=== PATIENT | male | born 1975 | race African-American/Black ===

== ENCOUNTER 2016-11-28 04:11 | Inpatient (IN) | payer OTHER ==
[~2016-11-28] VITALS: Ht 182.9 cm; Wt 134.0 kg
[~2016-11-28 04:11] MED LIST: ALBU2.5V3 NEB; BACL10TA PO; DIPH25CA6 PO; LEVE500S8 PO; METO-335 PO; MIRT15TA5 PO; NORT10CA2 PO; NOVO7030 SC; OMEP20CA16 PO; PHEN100C PO; RAMI10CA48 PO
[2017-06-06 21:05] VITALS: BP 121/90; PULSE 65; RESP 18
[2017-06-06 21:10] VITALS: Ht 182.9 cm; Wt 134.0 kg
[2017-06-06] MEDS ORDERED: morphine 2 MG INJ IV PRN (22:30)
[2017-06-07] MEDS: DIPHENHYDRAMINE 25 MG CAP PO PRN ×3 (01:05→20:50)
[2017-06-07] MEDS: HYDROCODONE/APAP (10/325) TAB PO PRN ×3 (01:05→20:50)
[2017-06-07] MEDS: PHENYTOIN 100 MG CAP PO SCH ×2 (01:06→20:40)
[2017-06-07 02:12] VITALS: BP 142/75; RESP 20
[2017-06-07] MEDS: PANTOPRAZOLE (EC) 40 MG TAB PO SCH (05:08)
[2017-06-07 05:15] LABS: BASOPHILS % 0.6 % (0.0-2.0); EOSINOPHILS # 0.3 10^3/ul (0.0-0.5); EOSINOPHILS % 4.5 % (0.0-7.0); HEMOGLOBIN 11.9 g/dl (14.0-18.0); LYMPHOCYTES # 2.5 10^3/ul (0.8-2.9); LYMPHOCYTES % 35.3 % (15.0-51.0); MEAN CORPUSCULAR HEMOGLOBIN 24.4 pg (29.0-33.0); MEAN CORPUSCULAR HGB CONC 31.3 g/dl (32.0-37.0); MEAN PLATELET VOLUME 9.3 fl (7.4-10.4); MONOCYTE # 0.7 10^3/ul (0.3-0.9); MONOCYTES % 10.2 % (0.0-11.0); NEUTROPHIL # 3.5 10^3/ul (1.6-7.5); NEUTROPHILS % 49.1 % (39.0-77.0); PLATELET COUNT 278 10^3/UL (140-415); RED BLOOD COUNT 4.87 10^6/ul (4.70-6.10); RED CELL DISTRIBUTION WIDTH 13.7 % (11.5-14.5); WHITE BLOOD COUNT 7.2 10^3/ul (4.8-10.8)
[2017-06-07 05:51] LABS: ALBUMIN/GLOBULIN RATIO 1.02; BILIRUBIN,INDIRECT 0.2 mg/dl (0-1.1); BILIRUBIN,TOTAL 0.2 mg/dl (0.2-1.3); CALCIUM 8.8 mg/dl (8.4-10.2); CREATININE 0.79 mg/dl (0.61-1.24); POTASSIUM 4.3 mmol/L (3.5-5.1); TOTAL PROTEIN 7.9 g/dl (6.1-8.1)
[2017-06-07 08:08] VITALS: BP 120/77; RESP 18
[2017-06-07] MEDS: BENAZEPRIL 10 MG TAB PO SCH (09:52)
[2017-06-07] MEDS: FLUTICASONE 0.05% 16 GM NAS SPRAY NASAL SCH (09:53)
[2017-06-07] MEDS: DORZOLAMIDE 2% 10 ML OPH BOTH EYES SCH ×3 (09:53→20:39)
[2017-06-07] MEDS: RISPERIDONE 2 MG TAB PO SCH (09:54)
[2017-06-07] MEDS: ESCITALOPRAM 10 MG TAB PO SCH (09:54)
[2017-06-07] MEDS: FERROUS SULFATE (EC) 325 MG TAB PO SCH ×3 (09:54→20:44)
[2017-06-07] MEDS: DIVALPROEX (ER) 500 MG TAB PO SCH (09:54)
[2017-06-07] MEDS: GABAPENTIN 300 MG CAP PO SCH ×3 (09:54→20:42)
[2017-06-07] MEDS: LEVETIRACETAM 500 MG TAB PO SCH (09:54)
[2017-06-07] MEDS: TIMOLOL 0.25% 5 ML OPH BOTH EYES SCH ×2 (09:59→20:44)
[2017-06-07] MEDS: DEXTROSE 5%-0.45% NACL 1,000 ML IV SCH (10:54)
--- NOTE | 2017-06-07 12:52 | QN ---
Documentation Comment [id number] MARY ANNE REYEZ MD Jun 07, 2017 12:52
[2017-06-07 14:16] VITALS: BP 130/80; RESP 18
--- NOTE | 2017-06-07 15:14 | HP ---
DATE OF ADMISSION: 06/06/2017 HISTORY OF PRESENT ILLNESS: The patient is a young male who was admitted to [facility]. Patient was complaining of abdominal pain. The patient has a ventral hernia and the patie nt was complaining of pain and was transferred here for further management. The patient is a little sleepy. Denies any nausea or vomiting at this point. PAST MEDICAL HISTORY: Positive for hypertension, CVA. ALLERGIES: 1. HALDOL. 2. FISH OIL. 3. FISH. 4. LATEX. SOCIAL HISTORY: Positive for smoking. Denies drugs. MEDICATION HISTORY: Listed as: 1. Lipitor 20 mg daily. 2. Benadryl. 3. Depakote. 4. Trusopt. 5. Celexa 10 mg daily. 6. Iron sulfate. 7. Gabapentin 600 mg a day. 8. Hydrocodone. 9. Keppra 500 twice daily. 10. Ramipril 5 mg daily. 11. Respirdal once daily. 12. Xarelto 20 mg daily. 13. Eyedrops. 14. Lasix. REVIEW OF SYSTEMS: HEENT: Unremarkable. RESPIRATORY: Unremarkable. CARDIOVASCULAR: Unremarkable. ABDOMEN: Abdominal pain. No hematemesis, melena. EXTREMITIES: Unremarkable. GENITOURINARY: Unremarkable. MUSCULOSKELETAL: Unremarkable. GENITOURINARY: Unremarkable. MUSCULOSKELETAL: The patient has left lower extremity weakness, as per patient left-sided weakness. EXTREMITIES: No cyanosis, no swelling. PHYSICAL EXAMINATION: GENERAL: The patient is awake, alert. VITAL SIGNS: Pulse 60, blood pressure 142/75. HEAD: Atraumatic, normocephalic. Pupils equal, reactive to light. No pallor or conjunctival icter us. NECK: Supple, no JVD. LUNGS: Clear. CARDIOVASCULAR: S1, S2 normal. ABDOMEN: Soft. Bowel sounds positive. Abdominal hernia noted. Tender on palpation. EXTREMITIES: No cyanosis, clubbing, edema. CENTRAL NERVOUS SYSTEM: The patient is awake, alert with left-sided weakness noted. IMPRESSION: 1. Abdominal pain. 2. Abdominal hernia. 3. Patient has history of hypertension, history of seizure disorder, history of hepatitis A infecti on, history of bipolar disorder, history of cerebrovascular accident. Patient has incomplete databa se. Patient has anemia. PLAN: Give this patient clear liquid diet. The patient will have surgical consultation. The patie nt's CT of the abdomen and pelvis done shows a ventral hernia without incarceration from the [facility]. Patient will be started on a PPI and pain medication. Orders were done. Dictated By: MARY ANNE NGUYEN/RAMA Conf#: [id number] DID#: [id number]
--- NOTE | 2017-06-07 15:43 | CONS ---
Date/Time of Note Date/Time of Note DATE: 06/07/17 TIME: 15:27 Assessment/Plan Assessment/Plan Chief Complaint/Hosp Course 1. Symptomatic ventral hernia without incarceration/strangulation -no emergent surgical intervention necessary at this time. may return to primary surgeon for hernia repair -weight loss recommended -may use abdominal binder (after reducing hernia) for support 2. Obesity: bmi: 40 -weight management -diet and exercise 3. history of cva: -medical management -supportive 4. Anemia: No acute bleed noted -work up per medical team -monitor and transfuse prn Thank you. Patient seen and examined in collaboration with Dr. Neto Gómez. Problems: Consultation Date/Type/Reason Admit Date/Time Jun 06, 2017 at 21:27 Date of Consultation: Jun 07, 2017 Type of Consultation: Surgical Reason for Consultation Ventral Hernia Referring Provider: MARY ANNE REYEZ MD Hx of Present Illness Luca Cooper is a 41 yo man who was transferred to [facility] with complaints of abdominal pain. He has significant history of previous PEG placement and removal , bowel obstruction with open exploration of the abdomen in 2002 done at [facility]. His abdominal pain began 5 days ago without particular precipitating factor. The pain is not associated with nausea, vomiting or discoloration of the abdomen. CT abdomen showed and ventral hernia without incarceration. No identifiable relieving factors. General surgery was asked to consult. Constitutional: No febrile Eyes: No visual change ENT: No congestion Respiratory: No cough, No shortness of breath Cardiovascular: No chest pain, No lightheadedness Gastrointestinal: pain (as above), No constipation, No diarrhea, No nausea Genitourinary: No dysuria Musculoskeletal: No bone/joint pain Skin: No bruising, No erythema Neurologic: No confusion, No headache Psychological: nl mood/affect Past Medical History Hypertension CVA dysphagia respiratory failure Past Surgical History tracheostomy peg placement abdomen exploration Family History Significant Family History: no pertinent family hx Social History Alcohol Use: none Smoking Status: Current every day smoker Drug Use: none Exam/Review of Systems Vital Signs Vitals Vital Signs Date Time Temp Pulse Resp B/P Pulse Ox O2 Delivery O2 Flow Rate FiO2 06/07/17 14:16 97.8 68 18 130/80 90 06/06/17 21:05 Room Air Intake and Output 06/06/17 06/06/17 06/07/17 15:00 23:00 07:00 Intake Total 1000 ml Output Total 950 ml Balance 50 ml Exam Constitutional: alert, other (somnolent) Psych: nl mood/affect Head: atraumatic, normocephalic Eyes: nl lids, nl sclera ENMT: mucosa pink and moist, nl nasal mucosa & septum Neck: non-tender, other (tracheostomy), supple Respiratory: clear to auscultation, normal air movement Cardiovascular: nl pulses, regular rate and rhythm Gastrointestinal: distended (min), other (ventral hernia), soft, surgical scars Musculoskeletal: nl extremities to inspection, other (left sided weakness) Extremities: normal pulses Neurological: nl mental status, nl strength, No nl speech (s/p cva min slurred) Skin: nl turgor, No rash or lesions Results Result Diagram: 06/07/1742106/07/17421 Results 24 hrs Laboratory Tests Test 06/07/17 04:22 White Blood Count 7.2 Red Blood Count 4.87 Hemoglobin 11.9 L Hematocrit 38.0 L Mean Corpuscular Volume 78.0 L Mean Corpuscular Hemoglobin 24.4 L Mean Corpuscular Hemoglobin Concent 31.3 L Red Cell Distribution Width 13.7 Platelet Count 278 # Mean Platelet Volume 9.3 Neutrophils % 49.1 Lymphocytes % 35.3 Monocytes % 10.2 Eosinophils % 4.5 Basophils % 0.6 Nucleated Red Blood Cells % 0.0 Neutrophils # 3.5 Lymphocytes # 2.5 Monocytes # 0.7 Eosinophils # 0.3 Basophils # 0.0 Nucleated Red Blood Cells # 0.0 Sodium Level 140 Potassium Level 4.3 Chloride Level 107 Carbon Dioxide Level 26 Anion Gap 11 Blood Urea Nitrogen 13 Creatinine 0.79 Glucose Level 91 Calcium Level 8.8 Total Bilirubin 0.2 Direct Bilirubin 0.00 Indirect Bilirubin 0.2 Aspartate Amino Transf (AST/SGOT) 43 Alanine Aminotransferase (ALT/SGPT) 46 Alkaline Phosphatase 150 H Total Protein 7.9 Albumin 4.0 Globulin 3.90 H Albumin/Globulin Ratio 1.02 Medications Medications Current Medications Pantoprazole (Protonix Tab) 40 mg DAILY@06 PO Last administered on 06/07/17t 05:08; Admin Dose 40 MG; Start 06/07/17 at 06:00 Atorvastatin Calcium (Lipitor) 20 mg HS PO ; Start 06/07/17 at 21:00 Diphenhydramine HCl (Benadryl) 25 mg Q8 PRN PO ITCHING Last administered on 10:09; Admin Dose 25 MG; Start 06/06/17 at 22:30 Divalproex Sodium (Depakote Er) 500 mg DAILY PO Last administered on 09:54; Admin Dose 500 MG; Start 06/07/17 at 09:00 Escitalopram Oxalate (Lexapro) 10 mg DAILY PO Last administered on 06/07/17 09:54; Admin Dose 10 MG; Start 06/07/17 at 09:00 Ferrous Sulfate (Ferrous Sulfate (Ec)) 325 mg TID PO Last administered on 06/07 09:54; Admin Dose 325 MG; Start 06/07/17 at 09:00 Fluticasone Propionate (Flonase 0.05% Nasal) 1 spray DAILY NASAL Last administered on 06/07/17 09:53; Admin Dose 1 SPRAY; Start 06/07/17 at 09:00 Gabapentin (Neurontin) 600 mg TID PO Last administered on 06/07/17 09:54; Admin Dose 600 MG; Start 06/07/17 at 09:00 Latanoprost (Xalatan) 1 drop HS BOTH EYES ; Start 06/07/17 at 18:00 Levetiracetam (Keppra) 500 mg DAILY PO Last administered on 06/07/17 09:54; Admin Dose 500 MG; Start 06/07/17 at 09:00 Acetaminophen/ Hydrocodone Bitart ([place] (10/325)) 1 tab BID PRN PO pain Last administered on 06/07/17 10:10; Admin Dose 1 TAB; Start 06/06/17 at 22:30 Phenytoin (Dilantin) 300 mg HS PO Last administered on 06/07/17 01:06; Admin Dose 300 MG; Start 06/06/17 at 23:00 Risperidone (Risperdal) 2 mg DAILY PO Last administered on 06/07/17 09:54; Admin Dose 2 MG; Start 06/07/17 at 09:00 Timolol Maleate (Timoptic 0.25%) 1 drop BID BOTH EYES Last administered on 09:59; Admin Dose 1 DROP; Start 06/07/17 at 09:00 Morphine Sulfate (morphine) 1 mg Q4H PRN IV PAIN LEVEL 4-7; Start 06/06/17 at 22:30 Morphine Sulfate (morphine) 2 mg Q4H PRN IV PAIN LEVEL 7-10; Start 06/06/17 at 22:30 Dorzolamide HCl (Trusopt) 1 drop TID BOTH EYES Last administered on 06/07/17 14:18; Admin Dose 1 DROP; Start 06/07/17 at 09:00 Benazepril HCl 20 mg 20 mg DAILY PO Last administered on 06/07/17 09:52; Admin Dose 20 MG; Start 06/07/17 at 09:00 Dextrose/Sodium Chloride (D5-1/2ns) 1,000 ml @ 50 mls/hr Q20H IV Last administered on 06/07/17 10:54; Admin Dose 50 MLS/HR; Start 06/07/17 at 10:30 RAFAL BROWN NP Jun 07, 2017 15:37
[2017-06-07] MEDS: RIVAROXABAN 20 MG TABLET PO SCH (17:55)
[2017-06-07] MEDS ORDERED: LATANOPROST 0.005% 2.5 ML OPH BOTH EYES SCH (18:00)
[2017-06-07 20:07] VITALS: BP 132/86; RESP 18
[2017-06-07] MEDS: LATANOPROST 0.005% 2.5 ML OPH BOTH EYES SCH (20:42)
[2017-06-07] MEDS: ATORVASTATIN 10 MG TAB PO SCH (20:44)
[2017-06-08 03:16] VITALS: BP 130/80; RESP 20
[2017-06-08] MEDS: PANTOPRAZOLE (EC) 40 MG TAB PO SCH (04:49)
[2017-06-08] MEDS: HYDROCODONE/APAP (10/325) TAB PO PRN ×3 (04:49→15:15)
[2017-06-08 05:15] LABS: BASOPHILS % 0.6 % (0.0-2.0); EOSINOPHILS # 0.4 10^3/ul (0.0-0.5); EOSINOPHILS % 5.4 % (0.0-7.0); HEMATOCRIT 35.8 % (42.0-52.0); HEMOGLOBIN 11.2 g/dl (14.0-18.0); LYMPHOCYTES # 2.6 10^3/ul (0.8-2.9); LYMPHOCYTES % 37.2 % (15.0-51.0); MEAN CORPUSCULAR HEMOGLOBIN 24.3 pg (29.0-33.0); MEAN CORPUSCULAR HGB CONC 31.3 g/dl (32.0-37.0); MEAN CORPUSCULAR VOLUME 77.7 fl (82.0-101.0); MEAN PLATELET VOLUME 9.8 fl (7.4-10.4); MONOCYTE # 0.7 10^3/ul (0.3-0.9); MONOCYTES % 9.9 % (0.0-11.0); NEUTROPHIL # 3.2 10^3/ul (1.6-7.5); NEUTROPHILS % 46.6 % (39.0-77.0); PLATELET COUNT 255 10^3/UL (140-415); RED BLOOD COUNT 4.61 10^6/ul (4.70-6.10); RED CELL DISTRIBUTION WIDTH 13.7 % (11.5-14.5); WHITE BLOOD COUNT 6.9 10^3/ul (4.8-10.8)
[2017-06-08 05:43] LABS: ALBUMIN 3.6 g/dl (3.3-4.9); ALBUMIN/GLOBULIN RATIO 0.83; BILIRUBIN,INDIRECT 0.2 mg/dl (0-1.1); BILIRUBIN,TOTAL 0.2 mg/dl (0.2-1.3); CALCIUM 8.7 mg/dl (8.4-10.2); CREATININE 0.79 mg/dl (0.61-1.24); POTASSIUM 4.1 mmol/L (3.5-5.1); TOTAL PROTEIN 7.9 g/dl (6.1-8.1)
[2017-06-08] MEDS: DEXTROSE 5%-0.45% NACL 1,000 ML IV SCH (06:10)
[2017-06-08 07:00] VITALS: BP 123/75; RESP 18
[2017-06-08] MEDS: TIMOLOL 0.25% 5 ML OPH BOTH EYES SCH ×2 (08:23→20:32)
[2017-06-08] MEDS: FLUTICASONE 0.05% 16 GM NAS SPRAY NASAL SCH (08:24)
[2017-06-08] MEDS: FERROUS SULFATE (EC) 325 MG TAB PO SCH ×3 (08:24→20:33)
[2017-06-08] MEDS: DORZOLAMIDE 2% 10 ML OPH BOTH EYES SCH ×3 (08:24→20:32)
[2017-06-08] MEDS: GABAPENTIN 300 MG CAP PO SCH ×3 (08:24→20:33)
[2017-06-08] MEDS: DIVALPROEX (ER) 500 MG TAB PO SCH (08:25)
[2017-06-08] MEDS: BENAZEPRIL 10 MG TAB PO SCH (08:25)
[2017-06-08] MEDS: LEVETIRACETAM 500 MG TAB PO SCH (08:25)
[2017-06-08] MEDS: RISPERIDONE 2 MG TAB PO SCH ×2 (08:26→20:33)
[2017-06-08] MEDS: ESCITALOPRAM 10 MG TAB PO SCH (08:26)
[2017-06-08] MEDS: morphine 2 MG INJ IV PRN ×2 (12:32→16:52)
[2017-06-08 14:00] VITALS: BP 137/78; RESP 18
[2017-06-08 15:32] VITALS: BP 121/81; PULSE 71; RESP 16
[2017-06-08] MEDS: RIVAROXABAN 20 MG TABLET PO SCH ×2 (17:14→20:33)
--- NOTE | 2017-06-08 18:08 | PN ---
Date/Time of Note Date/Time of Note DATE: 06/08/17 TIME: 18:07 Assessment/Plan VTE Prophylaxis VTE Prophylaxis Intervention: other Lines/Catheters IV Catheter Type (from Nrs): Saline Lock Assessment/Plan Chief Complaint/Hosp Course IMPRESSION: 1. Abdominal pain. 2. Abdominal hernia. 3. Patient has history of hypertension, history of seizure disorder, history of hepatitis A infection, history of bipolar disorder, history of cerebrovascular accident. Patient has incomplete database. Patient has anemia. PLAN ABD BINDER Problems: Subjective 24 Hr Interval Summary Cardiovascular: no complaints Gastrointestinal: No constipation, No diarrhea Exam/Review of Systems Vital Signs Vitals Vital Signs Date Time Temp Pulse Resp B/P Pulse Ox O2 Delivery O2 Flow Rate FiO2 06/08/17 15:32 97.8 71 16 121/81 96 Room Air Intake and Output 06/07/17 06/07/17 06/08/17 15:00 23:00 07:00 Intake Total 1100 ml Output Total 1300 ml Balance -200 ml Exam Respiratory: clear to auscultation Cardiovascular: regular rate and rhythm Gastrointestinal: soft Extremities: normal pulses Results Result Diagram: 06/08/17 0433 06/08/17 0433 Results 24 hrs Laboratory Tests Test 06/08/17 04:33 White Blood Count 6.9 Red Blood Count 4.61 L Hemoglobin 11.2 L Hematocrit 35.8 L Mean Corpuscular Volume 77.7 L Mean Corpuscular Hemoglobin 24.3 L Mean Corpuscular Hemoglobin Concent 31.3 L Red Cell Distribution Width 13.7 Platelet Count 255 Mean Platelet Volume 9.8 Neutrophils % 46.6 Lymphocytes % 37.2 Monocytes % 9.9 Eosinophils % 5.4 Basophils % 0.6 Nucleated Red Blood Cells % 0.0 Neutrophils # 3.2 Lymphocytes # 2.6 Monocytes # 0.7 Eosinophils # 0.4 Basophils # 0.0 Nucleated Red Blood Cells # 0.0 Sodium Level 139 Potassium Level 4.1 Chloride Level 107 Carbon Dioxide Level 26 Anion Gap 10 Blood Urea Nitrogen 13 Creatinine 0.79 Glucose Level 84 Calcium Level 8.7 Total Bilirubin 0.2 Direct Bilirubin 0.00 Indirect Bilirubin 0.2 Aspartate Amino Transf (AST/SGOT) 40 Alanine Aminotransferase (ALT/SGPT) 37 Alkaline Phosphatase 140 H Total Protein 7.9 Albumin 3.6 Globulin 4.30 H Albumin/Globulin Ratio 0.83 Medications Medications Current Medications Pantoprazole (Protonix Tab) 40 mg DAILY@06 PO Last administered on 06/08/17 04:49; Admin Dose 40 MG; Start 06/07/17 at 06:00 Atorvastatin Calcium (Lipitor) 20 mg HS PO Last administered on 06/07/17 20: 44; Admin Dose 20 MG; Start 06/07/17 at 21:00 Diphenhydramine HCl (Benadryl) 25 mg Q8 PRN PO ITCHING Last administered on 20:50; Admin Dose 25 MG; Start 06/06/17 at 22:30 Divalproex Sodium (Depakote Er) 500 mg DAILY PO Last administered on 09:54; Admin Dose 500 MG; Start 06/07/17 at 09:00 Escitalopram Oxalate (Lexapro) 10 mg DAILY PO Last administered on 06/07/17 09:54; Admin Dose 10 MG; Start 06/07/17 at 09:00 Ferrous Sulfate (Ferrous Sulfate (Ec)) 325 mg TID PO Last administered on 06/08 12:31; Admin Dose 325 MG; Start 06/07/17 at 09:00 Fluticasone Propionate (Flonase 0.05% Nasal) 1 spray DAILY NASAL Last administered on 06/08/17 08:24; Admin Dose 1 SPRAY; Start 06/07/17 at 09:00 Gabapentin (Neurontin) 600 mg TID PO Last administered on 06/08/17 12:31; Admin Dose 600 MG; Start 06/07/17 at 09:00 Levetiracetam (Keppra) 500 mg DAILY PO Last administered on 06/08/17 08:25; Admin Dose 500 MG; Start 06/07/17 at 09:00 Phenytoin (Dilantin) 300 mg HS PO Last administered on 06/07/17 20:40; Admin Dose 300 MG; Start 06/06/17 at 23:00 Risperidone (Risperdal) 2 mg DAILY PO Last administered on 06/07/17 09:54; Admin Dose 2 MG; Start 06/07/17 at 09:00 Timolol Maleate (Timoptic 0.25%) 1 drop BID BOTH EYES Last administered on 08:23; Admin Dose 1 DROP; Start 06/07/17 at 09:00 Morphine Sulfate (morphine) 1 mg Q4H PRN IV PAIN LEVEL 4-7; Start 06/06/17 at 22:30 Morphine Sulfate (morphine) 2 mg Q4H PRN IV PAIN LEVEL 7-10 Last administered on 06/08/17 16:52; Admin Dose 2 MG; Start 06/06/17 at 22:30 Dorzolamide HCl (Trusopt) 1 drop TID BOTH EYES Last administered on 06/08/17 12:31; Admin Dose 1 DROP; Start 06/07/17 at 09:00 Benazepril HCl 20 mg 20 mg DAILY PO Last administered on 06/08/17 08:25; Admin Dose 20 MG; Start 06/07/17 at 09:00 Dextrose/Sodium Chloride (D5-1/2ns) 1,000 ml @ 50 mls/hr Q20H IV Last administered on 06/07/17 10:54; Admin Dose 50 MLS/HR; Start 06/07/17 at 10:30 Latanoprost (Xalatan) 1 drop HS BOTH EYES Last administered on 06/07/17 20:42 ; Admin Dose 1 DROP; Start 06/07/17 at 21:00 Acetaminophen/ Hydrocodone Bitart ([place] (10/325)) 1 tab TID PRN PO PAIN Last administered on 06/08/17 15:15; Admin Dose 1 TAB; Start 06/08/17 at 13:30 MARY ANNE REYEZ MD Jun 08, 2017 18:08
[2017-06-08 19:25] VITALS: BP 124/87; PULSE 67; RESP 16
--- NOTE | 2017-06-08 20:08 | PN ---
Date/Time of Note Date/Time of Note DATE: 06/08/17 TIME: 20:04 Assessment/Plan Lines/Catheters IV [facility]from [facility]): Saline Lock Assessment/Plan Chief Complaint/Hosp Course 1. Symptomatic ventral hernia without incarceration/strangulation -no emergent surgical intervention necessary at this time. may return to primary surgeon for hernia repair -weight loss recommended -may use abdominal binder (after reducing hernia) for support 2. Obesity: bmi: 40 -weight management -diet and exercise 3. history of cva: -medical management -supportive 4. Anemia: No acute bleed noted -work up per medical team -monitor and transfuse prn 5. Depression with ?suicidal ideation -1:1 sitter -psych eval Thank you. Patient seen and examined in collaboration with Dr. Neto Gómez. Problems: Subjective 24 Hr Interval Summary Patient c/o abdominal pain when hernia protruding out but improved when hernia reduced (ie in bed). Instructed patient on putting on abd binder when hernia is reduced. C/o depression- with 1:1 sitter with reported thoughts of hurting himself. No c/o cp, palpitations, sob, congested cough, n/v/d/dysuria. Exam/Review of Systems Vital Signs Vitals Vital Signs Date Time Temp Pulse Resp B/P Pulse Ox O2 Delivery O2 Flow Rate FiO2 06/08/17 19:25 98.2 67 16 124/87 99 Room Air Intake and Output 06/07/17 06/07/17 06/08/17 15:00 23:00 07:00 Intake Total 1100 ml Output Total 1300 ml Balance -200 ml Exam Free Text/Dictation Constitutional: alert, other (somnolent) Psych: depressed, ?suicidal Head: atraumatic, normocephalic Eyes: nl lids, nl sclera ENMT: mucosa pink and moist, nl nasal mucosa & septum Neck: non-tender, other (tracheostomy), supple Respiratory: clear to auscultation, normal air movement Cardiovascular: nl pulses, regular rate and rhythm Gastrointestinal: distended (min), other (ventral hernia), soft, surgical scars Musculoskeletal: nl extremities to inspection, other (left sided weakness) Extremities: normal pulses Neurological: nl mental status, nl strength, No nl speech (s/p cva min slurred) Skin: nl turgor, No rash or lesions Results Result Diagram: 06/08/17 0433 06/08/17 0433 RAFAL BROWN NP Jun 08, 2017 20:08
[2017-06-08] MEDS: LATANOPROST 0.005% 2.5 ML OPH BOTH EYES SCH (20:32)
[2017-06-08] MEDS: ATORVASTATIN 10 MG TAB PO SCH (20:33)
[2017-06-08] MEDS: PHENYTOIN 100 MG CAP PO SCH (20:35)
[2017-06-08] MEDS ORDERED: GUAIFENESIN 20 MG/ML 5ML CUP ONE (21:54)
[2017-06-08] MEDS: GUAIFENESIN 20 MG/ML 5ML CUP PO SCH (21:56)
[2017-06-09] MEDS: morphine 2 MG INJ IV PRN ×4 (00:19→12:30)
[2017-06-09 02:13] VITALS: BP 113/74; RESP 18
[2017-06-09] MEDS: HYDROCODONE/APAP (10/325) TAB PO PRN ×3 (02:22→17:57)
[2017-06-09] MEDS: DEXTROSE 5%-0.45% NACL 1,000 ML IV SCH (02:30)
[2017-06-09] MEDS: PANTOPRAZOLE (EC) 40 MG TAB PO SCH (06:37)
[2017-06-09] MEDS: GUAIFENESIN 20 MG/ML 5ML CUP PO SCH ×3 (06:50→20:44)
[2017-06-09 07:00] VITALS: BP 124/70; RESP 18
[2017-06-09] MEDS: FLUTICASONE 0.05% 16 GM NAS SPRAY NASAL SCH (08:20)
[2017-06-09] MEDS: TIMOLOL 0.25% 5 ML OPH BOTH EYES SCH ×2 (08:20→20:44)
[2017-06-09] MEDS: DORZOLAMIDE 2% 10 ML OPH BOTH EYES SCH ×3 (08:20→20:43)
[2017-06-09] MEDS: ESCITALOPRAM 10 MG TAB PO SCH (08:21)
[2017-06-09] MEDS: FERROUS SULFATE (EC) 325 MG TAB PO SCH ×3 (08:21→20:43)
[2017-06-09] MEDS: LEVETIRACETAM 500 MG TAB PO SCH (08:21)
[2017-06-09] MEDS: GABAPENTIN 300 MG CAP PO SCH ×3 (08:22→20:41)
[2017-06-09] MEDS: BENAZEPRIL 10 MG TAB PO SCH (08:22)
[2017-06-09] MEDS: DIVALPROEX (ER) 500 MG TAB PO SCH (08:23)
--- NOTE | 2017-06-09 12:29 | PSY ---
Date/Time of Note Date/Time of Note DATE: 06/09/17 TIME: 12:20 Psychiatric Subjective Eval Consent Pt consented to telemedicine: Yes Subjective Evaluation Patient location: inpatient Chief Complaint: suicidal Reason for consult: d/w Dr Barreto - pt made sucidal statement History of present illness 41 yo disable dmale with hx schizophrenia, s/p ventral hernia repair, off his meds , reproted SI and command Ah telling him to go on traintracks with his wheelchair. Pt states he is depressed, but he has bright affect, smiling; he reprots Si but says he feels safe about going back to his [facility]. Denies Vh, denies HI. Sleep is good.Per RN, just resumed on his psych meds, which include lithium and celexa, risperidone. Past psychiatric history prior inpt Hospitalization: Suicidal Attempt(s) Family History denies Medical history Problems Medical Problems: (1) Cough Status: Acute (2) Pedal edema Status: Acute Allergies: Coded Allergies: Fish Containing Products (Verified Allergy, Unknown, unknown, 06/06/17) chicken derived (Verified Allergy, Unknown, unknown, 06/06/17) haloperidol (Verified Allergy, Unknown, 02/27/15) latex (Verified Allergy, Unknown, 02/27/15) Substance Abuse Substance use: No known substance abuse Social History Marital status: single Level of education: spec ed DPA/Conservatorship: No Occupation/Penitentiary: on [facility] Psychiatric Objective Eval Mental Status Examination: Appearance: Disheveled Eye Contact: Good Psychomotor Activity: Normal Behavior: Cooperative Speech: Slurred AFFECT: Appropriate Mood: Depressed Though Process: Circumstantial Thought Content: Hallucinations Suicidal: Yes Homicidal: No On 72 hour hold: No Orientation: x3 Cognition: Alert Insight: Impared Judgement: Impared Laboratory Results Laboratory Tests Test 06/08/17 04:33 06/09/17 01:54 White Blood Count 6.910^3/ul Red Blood Count 4.6110^6/ul Hemoglobin 11.2g/dl Hematocrit 35.8% Mean Corpuscular Volume 77.7fl Mean Corpuscular Hemoglobin 24.3pg Mean Corpuscular Hemoglobin Concent 31.3g/dl Red Cell Distribution Width 13.7% Platelet Count 97614^3/UL Mean Platelet Volume 9.8fl Neutrophils % 46.6% Lymphocytes % 37.2% Monocytes % 9.9% Eosinophils % 5.4% Basophils % 0.6% Nucleated Red Blood Cells % 0.0/100WBC Neutrophils # 3.210^3/ul Lymphocytes # 2.610^3/ul Monocytes # 0.710^3/ul Eosinophils # 0.410^3/ul Basophils # 0.010^3/ul Nucleated Red Blood Cells # 0.010^3/ul Sodium Level 139mmol/L Potassium Level 4.1mmol/L Chloride Level 107mmol/L Carbon Dioxide Level 26mmol/L Anion Gap 10 Blood Urea Nitrogen 13mg/dl Creatinine 0.79mg/dl Glucose Level 84mg/dl Calcium Level 8.7mg/dl Total Bilirubin 0.2mg/dl Direct Bilirubin 0.00mg/dl Indirect Bilirubin 0.2mg/dl Aspartate Amino Transf (AST/SGOT) 40IU/L Alanine Aminotransferase (ALT/SGPT) 37IU/L Alkaline Phosphatase 140IU/L Total Protein 7.9g/dl Albumin 3.6g/dl Globulin 4.30g/dl Albumin/Globulin Ratio 0.83 Troponin I < 0.012ng/ml Assessment and Plan Assessment/Diagnosis [place] I: SCHIZOAFFECTIVE DISORDER [place] II: DEFERED [place] III: PER RECORD [place] IV: MODERATE [place] V: GAF 35 Recommendation/Plan Medication Management PLEASE VERIFY PT'S HOME MEDS VIA HIS PHARMACY AND RESUME. CONSDIER INCREASING RISPERIDONE TO 2 MG PO QAM AND 3 MG PO QHS DUE TO COMMAND AH. MONITOR LITHIUM LEVEL. IF PT IS MEDICALLY CLEARED TODAY I WOULD RECOMMEND INPATIENT PSYCHIATRIC TRANSFER ON 5105 FOR DTS. IF PT IS NOT MEDICALLY CLEARED YET, PLEASE MONITOR FOR SI, 1:1 SITTER AND RE-EVALUATE VIA TELEPSYCH O THE DAY OF PLANNED DISCHARGE. Psychotherapy DEFER TO INPT Follow-up/Disposition SEE RECOMMENDATIONS 5150 Recommendation: JYOTI BENOIT MD Jun 09, 2017 12:29
[2017-06-09] MEDS: ALBUTEROL/IPRATROPIUM (NEB) 3 ML AMP HHN SCH ×2 (13:47→19:52)
[2017-06-09 14:00] VITALS: BP 123/72; RESP 18
[2017-06-09] MEDS: ACETAMINOPHEN 325 MG TAB PO PRN ×2 (14:43→20:38)
[2017-06-09] MEDS: LITHIUM CARBONATE 300 MG CAP PO SCH ×2 (14:43→20:42)
--- NOTE | 2017-06-09 15:13 | PN ---
Date/Time of Note Date/Time of Note DATE: 06/09/17 TIME: 15:12 Assessment/Plan VTE Prophylaxis VTE Prophylaxis Intervention: other Lines/Catheters IV Catheter Type (from Nrs): Saline Lock Assessment/Plan Chief Complaint/Hosp Course IMPRESSION: 1. Abdominal pain.BETTER 2. Abdominal hernia. 3. Patient has history of hypertension, history of seizure disorder, history of hepatitis A infection, history of bipolar disorder, history of cerebrovascular accident. Patient DEPRESSION Patient has anemia. PLAN ABD BINDER PSYCHIC Problems: Subjective 24 Hr Interval Summary Subjective hx not possible: other (HX DEPRESSION AND SUICIDAL IDEATION,PSYCHIC TO SEE) Exam/Review of Systems Vital Signs Vitals Vital Signs Date Time Temp Pulse Resp B/P Pulse Ox O2 Delivery O2 Flow Rate FiO2 06/09/17 14:00 100.2 96 18 123/72 95 06/09/17 13:50 21 06/09/17 08:00 2.0 06/08/17 19:25 Room Air Intake and Output 06/08/17 06/08/17 06/09/17 15:00 23:00 07:00 Intake Total 1120 ml 500 ml Output Total 1400 ml 450 ml Balance -280 ml 50 ml Exam Respiratory: clear to auscultation Cardiovascular: regular rate and rhythm Gastrointestinal: soft Musculoskeletal: nl extremities to inspection Results Result Diagram: 06/08/17 0433 06/08/17432 Results 24 hrs Laboratory Tests Test 06/09/17 01:54 Troponin I < 0.012 Medications Medications Current Medications Pantoprazole (Protonix Tab) 40 mg DAILY@06 PO Last administered on 06/09/17 06:37; Admin Dose 40 MG; Start 06/07/17 at 06:00 Atorvastatin Calcium (Lipitor) 20 mg HS PO Last administered on 06/08/17 20: 33; Admin Dose 20 MG; Start 06/07/17 at 21:00 Diphenhydramine HCl (Benadryl) 25 mg Q8 PRN PO ITCHING Last administered on 20:50; Admin Dose 25 MG; Start 06/06/17 at 22:30 Divalproex Sodium (Depakote Er) 500 mg DAILY PO Last administered on 09:54; Admin Dose 500 MG; Start 06/07/17 at 09:00 Escitalopram Oxalate (Lexapro) 10 mg DAILY PO Last administered on 06/09/17 08:21; Admin Dose 10 MG; Start 06/07/17 at 09:00 Ferrous Sulfate (Ferrous Sulfate (Ec)) 325 mg TID PO Last administered on 06/09 12:29; Admin Dose 325 MG; Start 06/07/17 at 09:00 Fluticasone Propionate (Flonase 0.05% Nasal) 1 spray DAILY NASAL Last administered on 06/09/17 08:20; Admin Dose 1 SPRAY; Start 06/07/17 at 09:00 Gabapentin (Neurontin) 600 mg TID PO Last administered on 06/09/17 12:29; Admin Dose 600 MG; Start 06/07/17 at 09:00 Levetiracetam (Keppra) 500 mg DAILY PO Last administered on 06/09/17 08:21; Admin Dose 500 MG; Start 06/07/17 at 09:00 Phenytoin (Dilantin) 300 mg HS PO Last administered on 06/08/17 20:35; Admin Dose 300 MG; Start 06/06/17 at 23:00 Risperidone (Risperdal) 2 mg DAILY PO Last administered on 06/08/17 20:33; Admin Dose 2 MG; Start 06/07/17 at 09:00 Timolol Maleate (Timoptic 0.25%) 1 drop BID BOTH EYES Last administered on 08:20; Admin Dose 1 DROP; Start 06/07/17 at 09:00 Dorzolamide HCl (Trusopt) 1 drop TID BOTH EYES Last administered on 06/09/17 12:29; Admin Dose 1 DROP; Start 06/07/17 at 09:00 Benazepril HCl 20 mg 20 mg DAILY PO Last administered on 06/09/17 08:22; Admin Dose 20 MG; Start 06/07/17 at 09:00 Dextrose/Sodium Chloride (D5-1/2ns) 1,000 ml @ 50 mls/hr Q20H IV Last administered on 06/07/17 10:54; Admin Dose 50 MLS/HR; Start 06/07/17 at 10:30 Latanoprost (Xalatan) 1 drop HS BOTH EYES Last administered on 06/08/17 20:32 ; Admin Dose 1 DROP; Start 10/12/17 at 21:00 Guaifenesin (Robitussin Liquid Cup) 100 mg TID PO Last administered on 09:55; Admin Dose 100 MG; Start 06/09/17 at 09:00 [place] Carbonate ([place] Carbonate) 300 mg TID PO Last administered on 14:43; Admin Dose 300 MG; Start 06/09/17 at 13:00 Mirtazapine (Remeron) 45 mg HS PO ; Start 06/09/17 at 21:00 Acetaminophen (Tylenol Tab) 650 mg Q6H PRN PO PAIN AND OR ELEVATED TEMP Last administered on 06/09/17 14:43; Admin Dose 650 MG; Start 06/09/17 at 14:30 Acetaminophen/ Hydrocodone Bitart ([place] (10)) 1 tab Q6H PRN PO PAIN; Start 06/09/17 at 18:00 MARY ANNE REYEZ MD Jun 09, 2017 15:13
[2017-06-09 15:51] VITALS: BP 126/71; RESP 18
[2017-06-09 17:50] LABS: ADD UMIC NO; UR ASCORBIC ACID 20 mg/dL (NEGATIVE); UR BILIRUBIN (Dip) NEGATIVE (NEGATIVE); UR BLOOD (Dip) NEGATIVE (NEGATIVE); UR CLARITY CLEAR (CLEAR); UR COLOR YELLOW (YELLOW); UR GLUCOSE (Dip) NEGATIVE (NEGATIVE); UR KETONES (Dip) NEGATIVE (NEGATIVE); UR LEUKOCYTE ESTERASE (Dip) NEGATIVE Leu/ul (NEGATIVE); UR NITRITE (Dip) NEGATIVE (NEGATIVE); UR TOTAL PROTEIN (Dip) NEGATIVE (NEGATIVE); UR UROBILINOGEN (Dip) NEGATIVE (NEGATIVE)
--- NOTE | 2017-06-09 19:11 | RADRPT ---
PROCEDURE: XR 1 view Chest. CLINICAL INDICATION: Cough. Fever. TECHNIQUE: Portable Single frontal view of the chest was obtained. COMPARISON: December 27, 2016. FINDINGS: The heart is normal in size. There are mild aortic calcifications.The lungs are hypoaerated. There is no focal consolidation. There is minimal left base atelectasis. There is no pleural effusion. No pneumothorax is identified. The osseous structures are intact. There is mild spondylosis/enthesopathy within the thoracic spine . IMPRESSION: No significant change. The lungs are hypoaerated. No evidence for acute cardiopulmonary disease. Minimal left base atelectasis. Aortic calcifications. Further findings as detailed above. RPTAT: HVF .El Biswas MD, MD Date Time Electronically viewed and signed by .El Biswas MD, on 06/09/2017 19:11 .F/
[2017-06-09 19:55] VITALS: BP 121/65; PULSE 90; RESP 20
[2017-06-09] MEDS: PHENYTOIN 100 MG CAP PO SCH (20:40)
[2017-06-09] MEDS: ATORVASTATIN 10 MG TAB PO SCH (20:43)
[2017-06-09] MEDS: LATANOPROST 0.005% 2.5 ML OPH BOTH EYES SCH (20:44)
[2017-06-09] MEDS: MIRTAZAPINE 15 MG TAB PO SCH (20:48)
[2017-06-09 20:57] VITALS: BP 122/63; RESP 19
--- NOTE | 2017-06-09 20:59 | PN ---
Date/Time of Note Date/Time of Note DATE: 06/09/17 TIME: 20:56 Assessment/Plan Lines/Catheters IV [facility] (from [facility]): Saline Lock Assessment/Plan Chief Complaint/Hosp Course 1. Symptomatic ventral hernia without incarceration/strangulation -no emergent surgical intervention necessary at this time. may return to primary surgeon for hernia repair -weight loss recommended -may use abdominal binder (after reducing hernia) for support 2. Obesity: bmi: 40 -weight management -diet and exercise 3. History of cva: -medical management -supportive 4. Anemia: No acute bleed noted -work up per medical team -monitor and transfuse prn 5. Depression with suicidal ideation -1:1 sitter per Psych Thank you, Problems: Subjective 24 Hr Interval Summary Abdominal pain improved. C/o depression- with 1:1 sitter with reported thoughts of hurting himself. No c/o cp, palpitations, sob, congested cough, n/v/d/ dysuria. Bowel function. No lazcano/dizy/visual or neuro changes. Exam/Review of Systems Vital Signs Vitals Vital Signs Date Time Temp Pulse Resp B/P Pulse Ox O2 Delivery O2 Flow Rate FiO2 06/09/17 19:52 92 22 97 21 06/09/17 15:51 99.0 126/71 06/09/17 08:00 2.0 06/08/17 19:25 Room Air Intake and Output 06/08/17 06/08/17 06/09/17 15:00 23:00 07:00 Intake Total 1120 ml 500 ml Output Total 1400 ml 450 ml Balance -280 ml 50 ml Exam Free Text/Dictation Constitutional: alert, other (somnolent) Psych: depressed, suicidal ideation Head: atraumatic, normocephalic Eyes: nl lids, nl sclera ENMT: mucosa pink and moist, nl nasal mucosa & septum Neck: non-tender, other (tracheostomy), supple Respiratory: clear to auscultation, normal air movement Cardiovascular: nl pulses, regular rate and rhythm Gastrointestinal: distended (min), other (ventral hernia), soft, surgical scars Musculoskeletal: nl extremities to inspection, other (left sided weakness) Extremities: normal pulses Neurological: nl mental status, nl strength, No nl speech (s/p cva min slurred) Skin: nl turgor, No rash or lesions Results Result Diagram: 06/08/17 0433 06/08/17 0433 JENNIFER QUEZADA MD Jun 09, 2017 20:59
[2017-06-10] VITALS (10 sets, daily range): BP systolic 113–127; BP diastolic 58–73; PULSE 86–105; RESP 17–18
[2017-06-10] MEDS: HYDROCODONE/APAP (10/325) TAB PO PRN ×2 (01:10→08:50)
[2017-06-10] MEDS: ALBUTEROL/IPRATROPIUM (NEB) 3 ML AMP HHN SCH ×5 (01:19→20:36)
[2017-06-10] MEDS: BACLOFEN 10 MG TAB PO SCH ×4 (03:30→21:54)
[2017-06-10] MEDS: PANTOPRAZOLE (EC) 40 MG TAB PO SCH (06:20)
[2017-06-10] MEDS: TIMOLOL 0.25% 5 ML OPH BOTH EYES SCH ×2 (08:49→21:52)
[2017-06-10] MEDS: DORZOLAMIDE 2% 10 ML OPH BOTH EYES SCH ×3 (08:49→21:52)
[2017-06-10] MEDS: RISPERIDONE 2 MG TAB PO SCH ×2 (08:50→21:54)
[2017-06-10] MEDS: GUAIFENESIN 20 MG/ML 5ML CUP PO SCH ×3 (08:50→21:55)
[2017-06-10] MEDS: FLUTICASONE 0.05% 16 GM NAS SPRAY NASAL SCH (08:50)
[2017-06-10] MEDS: GABAPENTIN 300 MG CAP PO SCH ×3 (08:51→21:53)
[2017-06-10] MEDS: BENAZEPRIL 10 MG TAB PO SCH (08:51)
[2017-06-10] MEDS: LEVETIRACETAM 500 MG TAB PO SCH (08:51)
[2017-06-10] MEDS: ESCITALOPRAM 10 MG TAB PO SCH (08:51)
[2017-06-10] MEDS: LITHIUM CARBONATE 300 MG CAP PO SCH ×3 (08:51→21:55)
[2017-06-10] MEDS: FERROUS SULFATE (EC) 325 MG TAB PO SCH ×3 (08:51→21:55)
[2017-06-10] MEDS: DIVALPROEX (ER) 500 MG TAB PO SCH (09:00)
[2017-06-10] MEDS: ACETAMINOPHEN 325 MG TAB PO PRN (12:59)
[2017-06-10] MEDS: RIVAROXABAN 20 MG TABLET PO SCH (17:42)
--- NOTE | 2017-06-10 18:52 | PN ---
Date/Time of Note Date/Time of Note DATE: 06/10/17 TIME: 18:51 Assessment/Plan VTE Prophylaxis VTE Prophylaxis Intervention: other Lines/Catheters IV Catheter Type (from [facility]): Saline Lock Urinary Cath still in place: No Assessment/Plan Chief Complaint/Hosp Course IMPRESSION: 1. Abdominal pain.BETTER 2. Abdominal hernia. 3. Patient has history of hypertension, history of seizure disorder, history of hepatitis A infection, history of bipolar disorder, history of cerebrovascular accident. PatientW DEPRESSION AND SUICIDAL IDEATION BETTER Patient has anemia. PLAN ABD BINDER PSYCHIC F/U SPIROMETRY Problems: Subjective 24 Hr Interval Summary Subjective hx not possible: other (ATYPICAL CHEST ,FEVER+) Exam/Review of Systems Vital Signs Vitals Vital Signs Date Time Temp Pulse Resp B/P Pulse Ox O2 Delivery O2 Flow Rate FiO2 06/10/17 17:04 86 06/10/17 16:19 2.0 06/10/17 15:40 100.1 18 113/66 96 06/10/17 14:25 Nasal Cannula 28 Intake and Output 06/09/17 06/09/17 06/10/17 15:00 23:00 07:00 Intake Total 1660 ml 400 ml Output Total 700 ml Balance 960 ml 400 ml Exam Neck: supple Respiratory: clear to auscultation Cardiovascular: regular rate and rhythm Gastrointestinal: soft Genitourinary - Male: nl penis Musculoskeletal: nl extremities to inspection Extremities: normal pulses Results Result Diagram: 06/08/17 0433 06/08/17 0433 Medications Medications Current Medications Pantoprazole (Protonix Tab) 40 mg DAILY@06 PO Last administered on 06/10/17 06:20; Admin Dose 40 MG; Start 06/07/17 at 06:00 Atorvastatin Calcium (Lipitor) 20 mg HS PO Last administered on 06/09/17 20: 43; Admin Dose 20 MG; Start 06/07/17 at 21:00 Diphenhydramine HCl (Benadryl) 25 mg Q8 PRN PO ITCHING Last administered on 20:50; Admin Dose 25 MG; Start 06/06/17 at 22:30 Divalproex Sodium (Depakote Er) 500 mg DAILY PO Last administered on 09:54; Admin Dose 500 MG; Start 06/07/17 at 09:00 Escitalopram Oxalate (Lexapro) 10 mg DAILY PO Last administered on 06/10/17 08:51; Admin Dose 10 MG; Start 06/07/17 at 09:00 Ferrous Sulfate (Ferrous Sulfate (Ec)) 325 mg TID PO Last administered on 06/10 12:58; Admin Dose 325 MG; Start 06/07/17 at 09:00 Fluticasone Propionate (Flonase 0.05% Nasal) 1 spray DAILY NASAL Last administered on 06/10/17 08:50; Admin Dose 1 SPRAY; Start 06/07/17 at 09:00 Gabapentin (Neurontin) 600 mg TID PO Last administered on 06/10/17 12:58; Admin Dose 600 MG; Start 06/07/17 at 09:00 Levetiracetam (Keppra) 500 mg DAILY PO Last administered on 06/10/17 08:51; Admin Dose 500 MG; Start 06/07/17 at 09:00 Phenytoin (Dilantin) 300 mg HS PO Last administered on 06/09/17 20:40; Admin Dose 300 MG; Start 06/06/17 at 23:00 Risperidone (Risperdal) 2 mg DAILY PO Last administered on 06/10/17 08:50; Admin Dose 2 MG; Start 06/07/17 at 09:00 Timolol Maleate (Timoptic 0.25%) 1 drop BID BOTH EYES Last administered on 08:49; Admin Dose 1 DROP; Start 06/07/17 at 09:00 Dorzolamide HCl (Trusopt) 1 drop TID BOTH EYES Last administered on 06/10/17 12:58; Admin Dose 1 DROP; Start 06/07/17 at 09:00 Benazepril HCl (Lotensin) 20 mg DAILY PO Last administered on 06/10/17 08:51 ; Admin Dose 20 MG; Start 06/07/17 at 09:00 Latanoprost (Xalatan) 1 drop HS BOTH EYES Last administered on 06/09/17 20:44 ; Admin Dose 1 DROP; Start 06/07/17 at 21:00 Guaifenesin (Robitussin Liquid Cup) 100 mg TID PO Last administered on 12:58; Admin Dose 100 MG; Start 06/09/17 at 09:00 [place] Carbonate ([place] Carbonate) 300 mg TID PO Last administered on 12:58; Admin Dose 300 MG; Start 06/09/17 at 13:00 Mirtazapine (Remeron) 45 mg HS PO Last administered on 06/09/17 20:48; Admin Dose 45 MG; Start 06/09/17 at 21:00 Acetaminophen (Tylenol Tab) 650 mg Q6H PRN PO PAIN AND OR ELEVATED TEMP Last administered on 06/10/17 12:59; Admin Dose 650 MG; Start 06/09/17 at 14:30 Acetaminophen/ Hydrocodone Bitart ([place] (10/325)) 1 tab Q6H PRN PO PAIN Last administered on 06/10/17 08:50; Admin Dose 1 TAB; Start 06/09/17 at 18:00 Baclofen (Lioresal) 10 mg TID PO Last administered on 06/10/17 12:58; Admin Dose 10 MG; Start 06/10/17 at 03:30 MARY ANNE REYEZ MD Jun 10, 2017 18:52
[2017-06-10] MEDS: LATANOPROST 0.005% 2.5 ML OPH BOTH EYES SCH (21:52)
[2017-06-10] MEDS: ATORVASTATIN 10 MG TAB PO SCH (21:53)
[2017-06-10] MEDS: RISPERIDONE 1 MG TAB PO SCH (21:54)
[2017-06-10] MEDS: MIRTAZAPINE 15 MG TAB PO SCH (21:54)
[2017-06-10] MEDS: PHENYTOIN 100 MG CAP PO SCH (21:54)
--- NOTE | 2017-06-10 23:58 | PN ---
Date/Time of Note Date/Time of Note DATE: 06/10/17 TIME: 23:58 Assessment/Plan Lines/Catheters IV Catheter Type (from Nrs): Saline Lock King in Place (from Nrs): No Assessment/Plan Chief Complaint/Hosp Course 1. Symptomatic ventral hernia without incarceration/strangulation -no emergent surgical intervention necessary at this time. may return to primary surgeon for hernia repair -weight loss recommended -may use abdominal binder (after reducing hernia) for support 2. Obesity: bmi: 40 -weight management -diet and exercise 3. History of cva: -medical management -supportive 4. Anemia: No acute bleed noted -work up per medical team -monitor and transfuse prn 5. Depression with suicidal ideation -1:1 sitter per Psych Thank you, Problems: Subjective 24 Hr Interval Summary Abdominal pain improved. Depression & SI with 1:1 sitter. Fever, low grade. No c/o cp, palpitations, sob, congested cough, n/v/d/dysuria. Bowel function. No lazcano/dizy/visual or neuro changes. Exam/Review of Systems Vital Signs Vitals Vital Signs Date Time Temp Pulse Resp B/P Pulse Ox O2 Delivery O2 Flow Rate FiO2 06/10/17 20:06 92 06/10/17 20:00 99.8 17 118/58 98 06/10/17 16:19 2.0 06/10/17 14:25 Nasal Cannula 28 Intake and Output 06/10/17 06/10/17 06/11/17 15:00 23:00 07:00 Intake Total 250 ml Balance 250 ml Exam Free Text/Dictation Constitutional: alert, other (somnolent) Psych: depressed, suicidal ideation Head: atraumatic, normocephalic Eyes: nl lids, nl sclera ENMT: mucosa pink and moist, nl nasal mucosa & septum Neck: non-tender, other (tracheostomy), supple Respiratory: clear to auscultation, normal air movement Cardiovascular: nl pulses, regular rate and rhythm Gastrointestinal: distended (min), other (ventral hernia), soft, surgical scars Musculoskeletal: nl extremities to inspection, other (left sided weakness) Extremities: normal pulses Neurological: nl mental status, nl strength, No nl speech (s/p cva min slurred) Skin: nl turgor, No rash or lesions Results Result Diagram: 06/08/17 0433 06/08/17 0433 JENNIFER QUEZADA MD Jun 10, 2017 23:58
[2017-06-11] VITALS (13 sets, daily range): BP systolic 103–118; BP diastolic 58–73; PULSE 85–116; RESP 18–21
[2017-06-11] MEDS: ALBUTEROL/IPRATROPIUM (NEB) 3 ML AMP HHN SCH ×4 (01:56→21:53)
[2017-06-11] MEDS ORDERED: PROMETHAZINE 25 MG TAB PO ONE (05:00)
[2017-06-11] MEDS: PANTOPRAZOLE (EC) 40 MG TAB PO SCH (06:36)
[2017-06-11 07:38] LABS: BASOPHILS % 0.2 % (0.0-2.0); EOSINOPHILS % 0.2 % (0.0-7.0); HEMATOCRIT 39.7 % (42.0-52.0); LYMPHOCYTES # 1.1 10^3/ul (0.8-2.9); LYMPHOCYTES % 13.6 % (15.0-51.0); MEAN CORPUSCULAR HGB CONC 30.2 g/dl (32.0-37.0); MEAN CORPUSCULAR VOLUME 79.2 fl (82.0-101.0); MEAN PLATELET VOLUME 9.5 fl (7.4-10.4); MONOCYTE # 1.1 10^3/ul (0.3-0.9); MONOCYTES % 12.9 % (0.0-11.0); NEUTROPHIL # 5.9 10^3/ul (1.6-7.5); NEUTROPHILS % 72.9 % (39.0-77.0); PLATELET COUNT 234 10^3/UL (140-415); RED BLOOD COUNT 5.01 10^6/ul (4.70-6.10); RED CELL DISTRIBUTION WIDTH 13.9 % (11.5-14.5); WHITE BLOOD COUNT 8.2 10^3/ul (4.8-10.8)
[2017-06-11 08:24] LABS: CHOL/HDL RATIO 4.1 RATIO
[2017-06-11] MEDS: TIMOLOL 0.25% 5 ML OPH BOTH EYES SCH ×2 (08:40→21:32)
[2017-06-11] MEDS: DORZOLAMIDE 2% 10 ML OPH BOTH EYES SCH ×3 (08:40→21:32)
[2017-06-11] MEDS: FLUTICASONE 0.05% 16 GM NAS SPRAY NASAL SCH (08:40)
[2017-06-11] MEDS: GABAPENTIN 300 MG CAP PO SCH ×3 (08:41→21:32)
[2017-06-11] MEDS: ESCITALOPRAM 10 MG TAB PO SCH (08:41)
[2017-06-11] MEDS: BACLOFEN 10 MG TAB PO SCH ×3 (08:41→21:34)
[2017-06-11] MEDS: BENAZEPRIL 10 MG TAB PO SCH (08:41)
[2017-06-11] MEDS: LEVETIRACETAM 500 MG TAB PO SCH (08:42)
[2017-06-11] MEDS: FERROUS SULFATE (EC) 325 MG TAB PO SCH ×3 (08:42→21:34)
[2017-06-11] MEDS: RISPERIDONE 2 MG TAB PO SCH ×2 (08:42→21:33)
[2017-06-11] MEDS: LITHIUM CARBONATE 300 MG CAP PO SCH ×3 (08:42→21:33)
[2017-06-11] MEDS: GUAIFENESIN 20 MG/ML 5ML CUP PO SCH ×3 (08:43→21:32)
[2017-06-11] MEDS: DIVALPROEX (ER) 500 MG TAB PO SCH (08:49)
--- NOTE | 2017-06-11 13:10 | PN ---
Date/Time of Note Date/Time of Note DATE: 06/11/17 TIME: 13:04 Assessment/Plan VTE Prophylaxis VTE Prophylaxis Intervention: other Lines/Catheters [facility] Saline Lock Urinary Cath still in place: No Assessment/Plan Chief Complaint/Hosp Course 41 Y/O with # Abdominal pain with ventral hernia without incarceration/strangulation # Depression with suicidal ideation # Obesity: bmi: 40 # History of cva: # Anemia: No acute bleed noted # hx Seizure dx # HTN Plan - Monitor for fevers today - c/w Resperidal 2/3 and c.w Norco - check levels lithium - 1:1 sitter - c/w Alexandra bhumika telepscy tmw when medically cleared Problems: Subjective 24 Hr Interval Summary Free Text/Dictation Pt had low grade fever yesterday Exam/Review of Systems Vital Signs Vitals Vital Signs Date Time Temp Pulse Resp B/P Pulse Ox O2 Delivery O2 Flow Rate FiO2 06/11/17 12:20 99 06/11/17 08:25 96 21 06/11/17 08:24 20 06/11/17 07:16 98.0 103/67 06/11/17 02:01 2.0 06/10/17 14:25 Nasal Cannula Intake and Output 06/10/17 06/10/17 06/11/17 15:00 23:00 07:00 Intake Total 250 ml 500 ml Balance 250 ml 500 ml Exam Constitutional: alert Psych: depressed, suicidal ideation Neck: supple Respiratory: clear to auscultation, normal air movement Cardiovascular: nl pulses, regular rate and rhythm Gastrointestinal: distended (min), other (ventral hernia), soft, surgical scars Musculoskeletal: nl extremities to inspection, other (left sided weakness) Results Result Diagram: 06/11/17 0713 06/08/17 0433 Results 24 hrs Laboratory Tests Test 06/11/17 04:52 06/11/17 07:13 Bedside Glucose 164 White Blood Count 8.2 Red Blood Count 5.01 Hemoglobin 12.0 L Hematocrit 39.7 L Mean Corpuscular Volume 79.2 L Mean Corpuscular Hemoglobin 24.0 L Mean Corpuscular Hemoglobin Concent 30.2 L Red Cell Distribution Width 13.9 Platelet Count 234 Mean Platelet Volume 9.5 Neutrophils % 72.9 Lymphocytes % 13.6 L Monocytes % 12.9 H Eosinophils % 0.2 Basophils % 0.2 Nucleated Red Blood Cells % 0.0 Neutrophils # 5.9 Lymphocytes # 1.1 Monocytes # 1.1 H Eosinophils # 0.0 Basophils # 0.0 Nucleated Red Blood Cells # 0.0 Triglycerides Level 130 Cholesterol Level 178 LDL Cholesterol, Calculated 109 HDL Cholesterol 43 Cholesterol/HDL Ratio 4.1 Medications Medications Current Medications Pantoprazole (Protonix Tab) 40 mg DAILY@06 PO Last administered on 06/11/17 06:36; Admin Dose 40 MG; Start 06/07/17 at 06:00 Atorvastatin Calcium (Lipitor) 20 mg HS PO Last administered on 06/10/17 21: 53; Admin Dose 20 MG; Start 06/07/17 at 21:00 Diphenhydramine HCl (Benadryl) 25 mg Q8 PRN PO ITCHING Last administered on 20:50; Admin Dose 25 MG; Start 06/06/17 at 22:30 Divalproex Sodium (Depakote Er) 500 mg DAILY PO Last administered on 09:54; Admin Dose 500 MG; Start 06/07/17 at 09:00 Escitalopram Oxalate (Lexapro) 10 mg DAILY PO Last administered on 06/11/17 08:41; Admin Dose 10 MG; Start 06/07/17 at 09:00 Ferrous Sulfate (Ferrous Sulfate (Ec)) 325 mg TID PO Last administered on 06/11 12:49; Admin Dose 325 MG; Start 06/07/17 at 09:00 Fluticasone Propionate (Flonase 0.05% Nasal) 1 spray DAILY NASAL Last administered on 06/11/17 08:40; Admin Dose 1 SPRAY; Start 06/07/17 at 09:00 Gabapentin (Neurontin) 600 mg TID PO Last administered on 06/11/17 12:49; Admin Dose 600 MG; Start 06/07/17 at 09:00 Levetiracetam (Keppra) 500 mg DAILY PO Last administered on 06/11/17 08:42; Admin Dose 500 MG; Start 06/07/17 at 09:00 Phenytoin (Dilantin) 300 mg HS PO Last administered on 06/10/17 21:54; Admin Dose 300 MG; Start 06/06/17 at 23:00 Timolol Maleate (Timoptic 0.25%) 1 drop BID BOTH EYES Last administered on 08:40; Admin Dose 1 DROP; Start 06/07/17 at 09:00 Dorzolamide HCl (Trusopt) 1 drop TID BOTH EYES Last administered on 06/11/17 12:49; Admin Dose 1 DROP; Start 06/07/17 at 09:00 Benazepril HCl (Lotensin) 20 mg DAILY PO Last administered on 06/11/17 08:41 ; Admin Dose 20 MG; Start 06/07/17 at 09:00 Latanoprost (Xalatan) 1 drop HS BOTH EYES Last administered on 06/10/17 21:52 ; Admin Dose 1 DROP; Start 06/07/17 at 21:00 Guaifenesin (Robitussin Liquid Cup) 100 mg TID PO Last administered on 12:49; Admin Dose 100 MG; Start 06/09/17 at 09:00 Norco Carbonate (Norco Carbonate) 300 mg TID PO Last administered on 12:50; Admin Dose 300 MG; Start 06/09/17 at 13:00 Mirtazapine (Remeron) 45 mg HS PO Last administered on 06/10/17 21:54; Admin Dose 45 MG; Start 06/09/17 at 21:00 Acetaminophen (Tylenol Tab) 650 mg Q6H PRN PO PAIN AND OR ELEVATED TEMP Last administered on 06/10/17 12:59; Admin Dose 650 MG; Start 06/09/17 at 14:30 Acetaminophen/ Hydrocodone Bitart ([place] (10/325)) 1 tab Q6H PRN PO PAIN Last administered on 06/10/17 08:50; Admin Dose 1 TAB; Start 06/09/17 at 18:00 Baclofen (Lioresal) 10 mg TID PO Last administered on 06/11/17 12:50; Admin Dose 10 MG; Start 06/10/17 at 03:30 Risperidone (Risperdal) 2 mg AM PO Last administered on 06/11/17 08:42; Admin Dose 2 MG; Start 06/11/17 at 09:00 Risperidone (Risperdal) 2 mg HS PO Last administered on 06/10/17 21:54; Admin Dose 2 MG; Start 06/10/17 at 21:00 Risperidone (Risperdal) 1 mg HS PO Last administered on 06/10/17t 21:54; Admin Dose 1 MG; Start 06/10/17 at 21:00 ELIEZER KEY MD Jun 11, 2017 13:10
--- NOTE | 2017-06-11 14:42 | PN ---
Date/Time of Note Date/Time of Note DATE: 06/11/17 TIME: 14:38 Assessment/Plan Lines/Catheters IV Catheter Type (from Nrs): Saline Lock King in Place (from Nrs): No Assessment/Plan Chief Complaint/Hosp Course 1. Symptomatic ventral hernia without incarceration/strangulation -no emergent surgical intervention necessary at this time. may return to primary surgeon for hernia repair -weight loss recommended -may use abdominal binder (after reducing hernia) for support 2. Obesity: bmi: 40 -weight management -diet and exercise 3. History of cva: -medical management -supportive 4. Anemia: No acute bleed noted -work up per medical team -monitor and transfuse prn 5. Depression with suicidal ideation: no SI at this time -1:1 sitter per Psych continues Thank you. Patient seen and examined in collaboration with Dr. Neto Gómez. Problems: Subjective 24 Hr Interval Summary Appears comfortable. Sleepy. No c/o abdominal pain/discomfort. No fevers, chills , sob, congested cough, n/v/d/dysuria, lazcano, dizziness, cp, palpitations. No SI today. Sitter continues. Exam/Review of Systems Vital Signs Vitals Vital Signs Date Time Temp Pulse Resp B/P Pulse Ox O2 Delivery O2 Flow Rate FiO2 06/11/17 13:58 94 21 06/11/17 13:57 110 20 06/11/17 12:00 98.6 106/59 06/11/17 02:01 2.0 06/10/17 14:25 Nasal Cannula Intake and Output 06/10/17 06/10/17 06/11/17 15:00 23:00 07:00 Intake Total 250 ml 500 ml Balance 250 ml 500 ml Exam Free Text/Dictation Constitutional: alert, other (somnolent) Psych: depressed, no suicidal ideation today Head: atraumatic, normocephalic Eyes: nl lids, nl sclera ENMT: mucosa pink and moist, nl nasal mucosa & septum Neck: non-tender, other (tracheostomy), supple Respiratory: clear to auscultation, normal air movement Cardiovascular: nl pulses, regular rate and rhythm Gastrointestinal: distended (min), other (ventral hernia), soft, surgical scars Musculoskeletal: nl extremities to inspection, other (left sided weakness) Extremities: normal pulses Neurological: nl mental status, nl strength, No nl speech (s/p cva min slurred) Skin: nl turgor, No rash or lesions Results Result Diagram: 06/11/17 0713 06/08/17 0433 RAFAL BROWN NP Jun 11, 2017 14:42
--- NOTE | 2017-06-11 15:00 | RADRPT ---
Vent Rate: 93 bpm RR Interval: 0 msec [place] Interval: 184 msec QRS Duration: 84 msec QT Interval: 346 msec QTC Interval: 430 msec P-R-T [place]: 59 - -1 - 59 degrees Normal sinus rhythm Septal infarct , age undetermined Abnormal ECG Electronically Signed By: Home Dacosta [id number]
[2017-06-11] MEDS: RIVAROXABAN 20 MG TABLET PO SCH (17:45)
[2017-06-11] MEDS: ACETAMINOPHEN 325 MG TAB PO PRN (17:46)
--- NOTE | 2017-06-11 18:19 | RADRPT ---
Echocardiogram Report Patient Name: TJ DEWITT Gender: Male Date: 1975 Study Date: 09-Jun-2017 Resolution Expert: ARMIN Location: I Ref. Physician: MARY ANNE REYEZ Quality: Technically Difficult Study Procedures: Transthoracic echocardiogram with 2D, M-Mode, and Doppler examination,no subcostal images (hernia/obese). Indications: Abnormal EKG. 2D/M Mode Doppler Measurement Value Normal Ranges Measurement Value Normal Ranges AoR Diam MM 3.7 cm AV Peak Shay 1.2 m/sec ACS MM 2.5 cm AV Peak PG 5.8 mmHg LVIDd 2D 3.4 3.5 - 5.6 cm LVOT Peak Shay 1.0 m/sec LVIDs 2D 2.4 2.1 - 4.1 cm LVOT Peak PG 4.2 mmHg LVPWd 2D 1.3 0.6 - 1.1 cm MV E Peak Shay 0.9 m/sec IVSd 2D 1.5 0.6 - 1.1 cm MV A Peak Shay 0.5 m/sec EDV 2D 47.5 cm3 MV E/A 1.8 ESV 2D 13.7 cm3 MV Decel Time 160 msec LA Dimen 2D 3.2 2.3 - 4.0 cm MV Decel Addison 6 MV E/A 1.8 PV Peak Shay 1.2 m/sec PV Peak PG 6.0 mmHg Findings Left Ventricle: Normal left ventricular systolic function. Normal left ventricular cavity size. Mild concentric left ventricular hypertrophy. Ejection fraction is visually estimated at 6065 %. Tissue Doppler/Mitral Doppler indices are within normal limits, patient could not Valsalva (coughing throughout exam). E/E`=6. Right Ventricle: Normal right ventricular size. Left Atrium: The left atrium is normal in size. Right Atrium: The right atrium is normal in size. Atrial Septum: Not well visualized. Mitral Valve: Normal appearance and function of the mitral valve with trace physiologic regurgitation. Aortic Valve: Normal appearance of the aortic valve. No significant aortic stenosis or insufficiency. Tricuspid Valve: Normal appearance of the tricuspid valve. There is trace tricuspid regurgitation. Pulmonic Valve: Normal pulmonic valve appearance. No evidence of pulmonic regurgitation. Pericardium: Normal pericardium with no significant pericardial effusion. Aorta: Normal aortic root. IVC: The IVC is not well visualized. Pulmonary Artery: Normal pulmonary artery size. Conclusions 1.Normal left ventricular systolic function. Normal left ventricular cavity size. Mild concentric left ventricular hypertrophy. Ejection fraction is visually estimated at 60-65 %. Tissue Doppler/Mitral Doppler indices are within normal limits, patient could not Valsalva (coughing throughout exam). 2.Normal appearance and function of the mitral valve with trace physiologic regurgitation. 3.Normal appearance of the tricuspid valve. There is trace tricuspid regurgitation. Electronically Signed By: Alvino Honeycutt 11-Jun-2017 18:19:25 -0700 Patient Name: TJ DEWITT Study Date: 09-Jun-[id number]
[2017-06-11] MEDS: ATORVASTATIN 10 MG TAB PO SCH (21:33)
[2017-06-11] MEDS: MIRTAZAPINE 15 MG TAB PO SCH (21:33)
[2017-06-11] MEDS: RISPERIDONE 1 MG TAB PO SCH (21:34)
[2017-06-11] MEDS: PHENYTOIN 100 MG CAP PO SCH (21:34)
[2017-06-11] MEDS: HYDROCODONE/APAP (10/325) TAB PO PRN (21:45)
[2017-06-11] MEDS: LATANOPROST 0.005% 2.5 ML OPH BOTH EYES SCH (23:07)
[2017-06-12] VITALS (12 sets, daily range): BP systolic 107–137; BP diastolic 62–79; PULSE 85–110; RESP 18–20
[2017-06-12] MEDS: DIPHENHYDRAMINE 25 MG CAP PO PRN (01:43)
[2017-06-12] MEDS: ACETAMINOPHEN 325 MG TAB PO PRN ×2 (01:47→12:43)
[2017-06-12] MEDS: ALBUTEROL/IPRATROPIUM (NEB) 3 ML AMP HHN SCH ×4 (02:27→20:35)
[2017-06-12] MEDS: PANTOPRAZOLE (EC) 40 MG TAB PO SCH (05:38)
[2017-06-12] MEDS: HYDROCODONE/APAP (10/325) TAB PO PRN (05:45)
[2017-06-12 06:42] LABS: BASOPHILS % 0.4 % (0.0-2.0); EOSINOPHILS # 0.1 10^3/ul (0.0-0.5); EOSINOPHILS % 2.3 % (0.0-7.0); HEMATOCRIT 36.8 % (42.0-52.0); HEMOGLOBIN 11.1 g/dl (14.0-18.0); LYMPHOCYTES # 2.7 10^3/ul (0.8-2.9); LYMPHOCYTES % 46.7 % (15.0-51.0); MEAN CORPUSCULAR HEMOGLOBIN 24.4 pg (29.0-33.0); MEAN CORPUSCULAR HGB CONC 30.2 g/dl (32.0-37.0); MEAN CORPUSCULAR VOLUME 81.1 fl (82.0-101.0); MEAN PLATELET VOLUME 9.8 fl (7.4-10.4); MONOCYTE # 0.9 10^3/ul (0.3-0.9); MONOCYTES % 15.3 % (0.0-11.0); NEUTROPHILS % 34.9 % (39.0-77.0); PLATELET COUNT 202 10^3/UL (140-415); RED BLOOD COUNT 4.54 10^6/ul (4.70-6.10); RED CELL DISTRIBUTION WIDTH 14.2 % (11.5-14.5); WHITE BLOOD COUNT 5.7 10^3/ul (4.8-10.8)
[2017-06-12 07:01] LABS: ALBUMIN 3.8 g/dl (3.3-4.9); ALBUMIN/GLOBULIN RATIO 0.95; CALCIUM 8.4 mg/dl (8.4-10.2); CREATININE 1.04 mg/dl (0.61-1.24); POTASSIUM 4.5 mmol/L (3.5-5.1); TOTAL PROTEIN 7.8 g/dl (6.1-8.1)
[2017-06-12] MEDS: DIVALPROEX (ER) 500 MG TAB PO SCH (09:00)
[2017-06-12] MEDS: RISPERIDONE 2 MG TAB PO SCH ×2 (09:00→20:30)
[2017-06-12] MEDS: FERROUS SULFATE (EC) 325 MG TAB PO SCH ×4 (11:12→20:16)
[2017-06-12] MEDS: TIMOLOL 0.25% 5 ML OPH BOTH EYES SCH ×2 (11:12→20:23)
[2017-06-12] MEDS: GABAPENTIN 300 MG CAP PO SCH ×4 (11:12→20:17)
[2017-06-12] MEDS: DORZOLAMIDE 2% 10 ML OPH BOTH EYES SCH ×3 (11:12→20:24)
[2017-06-12] MEDS: FLUTICASONE 0.05% 16 GM NAS SPRAY NASAL SCH (11:12)
[2017-06-12] MEDS: LITHIUM CARBONATE 300 MG CAP PO SCH ×4 (11:13→20:17)
[2017-06-12] MEDS: LEVETIRACETAM 500 MG TAB PO SCH (11:13)
[2017-06-12] MEDS: BACLOFEN 10 MG TAB PO SCH ×4 (11:13→20:16)
[2017-06-12] MEDS: ESCITALOPRAM 10 MG TAB PO SCH (11:14)
[2017-06-12] MEDS: BENAZEPRIL 10 MG TAB PO SCH (11:14)
[2017-06-12] MEDS: GUAIFENESIN 20 MG/ML 5ML CUP PO SCH ×4 (11:14→20:18)
--- NOTE | 2017-06-12 16:32 | PSY ---
Date/Time of Note Date/Time of Note DATE: 06/12/17 TIME: 16:26 Psychiatric Subjective Eval Consent Pt consented to telemedicine: Yes Subjective Evaluation Patient location: inpatient Chief Complaint: suicidal Reason for consult: d/w Dr Barreto - pt made sucidal statement History of present illness d/w Larisa . 41 yo AAM with hx schizophrenia and multiple medical problems who was seen by this MD during this admission. At that time pt was off meds for 3 days he was hallucinating and made a suicidal statement. His meds were resumed and pt is ready for discharge, per RN. Pt is calm and cooperative, he greeted this MD cordially. he reprots feeling well since he is back on his meds ; he denies depression, denies si or hi, he denies ah or vh, denies paranoia. he is looking forward to being discharged back to his board and care. Past psychiatric history prior inpt Hospitalization: no Family History denies Medical history Problems Medical Problems: (1) Cough Status: Acute (2) Pedal edema Status: Acute Allergies: Coded Allergies: Fish Containing Products (Verified Allergy, Unknown, unknown, 06/06/17) chicken derived (Verified Allergy, Unknown, unknown, 06/06/17) haloperidol (Verified Allergy, Unknown, 02/27/15) latex (Verified Allergy, Unknown, 02/27/15) Substance Abuse Substance use: No known substance abuse Social History Marital status: single Level of education: spec ed DPA/Conservatorship: No Occupation/Snf: on ssi Psychiatric Objective Eval Mental Status Examination: Appearance: Groomed Eye Contact: Good Psychomotor Activity: Normal Behavior: Cooperative Speech: Clear AFFECT: Appropriate Mood: Appropriate/Full Though Process: Linear Thought Content: Normal Suicidal: No Homicidal: No On 72 hour hold: No Orientation: x4 Cognition: Alert Insight: Impared Judgement: Intact Laboratory Results Laboratory Tests Test 06/11/17 04:52 06/11/17 07:13 06/11/17 13:51 06/12/17 06:01 Bedside Glucose 164mg/dL White Blood Count 8.210^3/ul 5.710^3/ul Red Blood Count 5.0110^6/ul 4.5410^6/ul Hemoglobin 12.0g/dl 11.1g/dl Hematocrit 39.7% 36.8% Mean Corpuscular Volume 79.2fl 81.1fl Mean Corpuscular Hemoglobin 24.0pg 24.4pg Mean Corpuscular Hemoglobin Concent 30.2g/dl 30.2g/dl Red Cell Distribution Width 13.9% 14.2% Platelet Count 20817^3/UL 84821^3/UL Mean Platelet Volume 9.5fl 9.8fl Neutrophils % 72.9% 34.9% Lymphocytes % 13.6% 46.7% Monocytes % 12.9% 15.3% Eosinophils % 0.2% 2.3% Basophils % 0.2% 0.4% Nucleated Red Blood Cells % 0.0/100WBC 0.0/100WBC Neutrophils # 5.910^3/ul 2.010^3/ul Lymphocytes # 1.110^3/ul 2.710^3/ul Monocytes # 1.110^3/ul 0.910^3/ul Eosinophils # 0.010^3/ul 0.110^3/ul Basophils # 0.010^3/ul 0.010^3/ul Nucleated Red Blood Cells # 0.010^3/ul 0.010^3/ul Triglycerides Level 130mg/dl Cholesterol Level 178mg/dl LDL Cholesterol, Calculated 109mg/dl HDL Cholesterol 43mg/dl Cholesterol/HDL Ratio 4.1RATIO [place] Level 0.6mmol/L Sodium Level 140mmol/L Potassium Level 4.5mmol/L Chloride Level 107mmol/L Carbon Dioxide Level 24mmol/L Anion Gap 14 Blood Urea Nitrogen 19mg/dl Creatinine 1.04mg/dl Glucose Level 110mg/dl Calcium Level 8.4mg/dl Total Bilirubin 0.0mg/dl Direct Bilirubin 0.00mg/dl Indirect Bilirubin 0.0mg/dl Aspartate Amino Transf (AST/SGOT) 54IU/L Alanine Aminotransferase (ALT/SGPT) 50IU/L Alkaline Phosphatase 129IU/L Total Protein 7.8g/dl Albumin 3.8g/dl Globulin 4.00g/dl Albumin/Globulin Ratio 0.95 Assessment and Plan Assessment/Diagnosis [place] I: SCHIZOAFFECTIVE DISORDER [place] II: DEFERED [place] III: PER RECORD [place] IV: MODERATE [place] V: GAF 40 Recommendation/Plan Medication Management PLEASE CONTINUE CURRENT MEDS Psychotherapy DEFER TO OUTPT Follow-up/Disposition NO DTS, DTO,GD; PLEASE DISCHARGE TO HIS BOARD AND CARE WITH OUTPT FOLLOW UP. IF PT IS ON 5150, HOLD CAN BE STOPPED BECAUSE PT DOES NOT MEET CRITERIA FOR A HOLD AND INVOLUNTARY HOSPITALIZATION. 5150 Recommendation: Release Hold JYOTI BENOIT MD Jun 12, 2017 16:32
--- NOTE | 2017-06-12 17:29 | PN ---
Date/Time of Note Date/Time of Note DATE: 06/12/17 TIME: 17:28 Assessment/Plan VTE Prophylaxis VTE Prophylaxis Intervention: LMWH Lines/Catheters IV Catheter Type (from [facility]): Saline Lock Urinary Cath still in place: No Assessment/Plan Chief Complaint/Hosp Course 41 Y/O with # Abdominal pain with ventral hernia without incarceration/strangulation # Depression with suicidal ideation # Obesity: bmi: 40 # History of cva: # Anemia: No acute bleed noted # hx Seizure dx # HTN Plan - Monitor for fevers today - c/w Resperidal 2/3 and c.w Richardson - c/w Keppra - c/w Keppra - Possible dc to boarding care Problems: Subjective 24 Hr Interval Summary Free Text/Dictation Feeling better today Exam/Review of Systems Vital Signs Vitals Vital Signs Date Time Temp Pulse Resp B/P Pulse Ox O2 Delivery O2 Flow Rate FiO2 06/12/17 16:54 85 06/12/17 16:41 98.6 19 116/79 95 06/12/17 14:25 21 06/12/17 02:27 Nasal Cannula 2.0 Intake and Output 06/11/17 06/11/17 06/12/17 15:00 23:00 07:00 Intake Total 1320 ml 1000 ml Output Total 850 ml Balance 1320 ml 150 ml Exam onstitutional: alert Psych: depressed, suicidal ideation Neck: supple Respiratory: clear to auscultation, normal air movement Cardiovascular: nl pulses, regular rate and rhythm Gastrointestinal: distended (min), other (ventral hernia), soft, surgical scars Musculoskeletal: nl extremities to inspection, other (left sided weakness) Results Result Diagram: 06/12/17 0601 06/12/17 0601 Results 24 hrs Laboratory Tests Test 06/12/17 06:01 White Blood Count 5.7 # Red Blood Count 4.54 L Hemoglobin 11.1 L Hematocrit 36.8 L Mean Corpuscular Volume 81.1 L Mean Corpuscular Hemoglobin 24.4 L Mean Corpuscular Hemoglobin Concent 30.2 L Red Cell Distribution Width 14.2 Platelet Count 202 Mean Platelet Volume 9.8 Neutrophils % 34.9 L Lymphocytes % 46.7 Monocytes % 15.3 H Eosinophils % 2.3 Basophils % 0.4 Nucleated Red Blood Cells % 0.0 Neutrophils # 2.0 Lymphocytes # 2.7 Monocytes # 0.9 Eosinophils # 0.1 Basophils # 0.0 Nucleated Red Blood Cells # 0.0 Sodium Level 140 Potassium Level 4.5 Chloride Level 107 Carbon Dioxide Level 24 Anion Gap 14 Blood Urea Nitrogen 19 Creatinine 1.04 Glucose Level 110 Calcium Level 8.4 Total Bilirubin 0.0 L Direct Bilirubin 0.00 Indirect Bilirubin 0.0 Aspartate Amino Transf (AST/SGOT) 54 H Alanine Aminotransferase (ALT/SGPT) 50 Alkaline Phosphatase 129 H Total Protein 7.8 Albumin 3.8 Globulin 4.00 H Albumin/Globulin Ratio 0.95 Medications Medications Current Medications Pantoprazole (Protonix Tab) 40 mg DAILY@06 PO Last administered on 06/12/17 05:38; Admin Dose 40 MG; Start 06/07/17 at 06:00 Atorvastatin Calcium (Lipitor) 20 mg HS PO Last administered on 06/11/17 21: 33; Admin Dose 20 MG; Start 06/07/17 at 21:00 Diphenhydramine HCl (Benadryl) 25 mg Q8 PRN PO ITCHING Last administered on 01:43; Admin Dose 25 MG; Start 06/06/17 at 22:30 Divalproex Sodium (Depakote Er) 500 mg DAILY PO Last administered on 09:54; Admin Dose 500 MG; Start 06/07/17 at 09:00 Escitalopram Oxalate (Lexapro) 10 mg DAILY PO Last administered on 06/12/17 11:14; Admin Dose 10 MG; Start 06/07/17 at 09:00 Ferrous Sulfate (Ferrous Sulfate (Ec)) 325 mg TID PO Last administered on 06/12 11:12; Admin Dose 325 MG; Start 06/07/17 at 09:00 Fluticasone Propionate (Flonase 0.05% Nasal) 1 spray DAILY NASAL Last administered on 06/12/17 11:12; Admin Dose 1 SPRAY; Start 06/07/17 at 09:00 Levetiracetam (Keppra) 500 mg DAILY PO Last administered on 06/12/17 11:13; Admin Dose 500 MG; Start 06/07/17 at 09:00 Phenytoin (Dilantin) 300 mg HS PO Last administered on 06/11/17 21:34; Admin Dose 300 MG; Start 06/06/17 at 23:00 Timolol Maleate (Timoptic 0.25%) 1 drop BID BOTH EYES Last administered on 11:12; Admin Dose 1 DROP; Start 06/07/17 at 09:00 Dorzolamide HCl (Trusopt) 1 drop TID BOTH EYES Last administered on 06/12/17 11:12; Admin Dose 1 DROP; Start 06/07/17 at 09:00 Benazepril HCl (Lotensin) 20 mg DAILY PO Last administered on 06/12/17 11:14 ; Admin Dose 20 MG; Start 06/07/17 at 09:00 Latanoprost (Xalatan) 1 drop HS BOTH EYES Last administered on 06/11/17 23:07 ; Admin Dose 1 DROP; Start 06/07/17 at 21:00 Guaifenesin (Robitussin Liquid Cup) 100 mg TID PO Last administered on 11:14; Admin Dose 100 MG; Start 06/09/17 at 09:00 Richardson Carbonate (Richardson Carbonate) 300 mg TID PO Last administered on 11:13; Admin Dose 300 MG; Start 06/09/17 at 13:00 Mirtazapine (Remeron) 45 mg HS PO Last administered on 06/11/17 21:33; Admin Dose 45 MG; Start 06/09/17 at 21:00 Acetaminophen (Tylenol Tab) 650 mg Q6H PRN PO PAIN AND OR ELEVATED TEMP Last administered on 06/12/17 12:43; Admin Dose 650 MG; Start 06/09/17 at 14:30 Acetaminophen/ Hydrocodone Bitart ([place] (10/325)) 1 tab Q6H PRN PO PAIN Last administered on 06/12/17 05:45; Admin Dose 1 TAB; Start 06/09/17 at 18:00 Baclofen (Lioresal) 10 mg TID PO Last administered on 06/12/17 11:13; Admin Dose 10 MG; Start 06/10/17 at 03:30 Risperidone (Risperdal) 2 mg AM PO Last administered on 06/11/17 08:42; Admin Dose 2 MG; Start 06/11/17 at 09:00 Risperidone (Risperdal) 2 mg HS PO Last administered on 06/11/17 21:33; Admin Dose 2 MG; Start 06/10/17 at 21:00 Risperidone (Risperdal) 1 mg HS PO Last administered on 06/11/17 21:34; Admin Dose 1 MG; Start 06/10/17 at 21:00 Gabapentin (Neurontin) 300 mg TID PO Last administered on 06/12/17 11:12; Admin Dose 300 MG; Start 06/11/17 at 21:00 ELIEZER KEY MD Jun 12, 2017 17:29
[2017-06-12] MEDS: RIVAROXABAN 20 MG TABLET PO SCH (17:37)
[2017-06-12] MEDS: PHENYTOIN 100 MG CAP PO SCH (20:15)
[2017-06-12] MEDS: ATORVASTATIN 10 MG TAB PO SCH (20:16)
[2017-06-12] MEDS: MIRTAZAPINE 15 MG TAB PO SCH (20:17)
[2017-06-12] MEDS: RISPERIDONE 1 MG TAB PO SCH (20:17)
[2017-06-12] MEDS: LATANOPROST 0.005% 2.5 ML OPH BOTH EYES SCH (20:40)
--- NOTE | 2017-06-12 22:25 | PN ---
Date/Time of Note Date/Time of Note DATE: 06/12/17 TIME: 22:24 Assessment/Plan Lines/Catheters IV Catheter Type (from Nrs): Saline Lock King in Place (from Nrs): No Assessment/Plan Chief Complaint/Hosp Course 1. Symptomatic ventral hernia without incarceration/strangulation -no emergent surgical intervention necessary at this time. may return to primary surgeon for hernia repair -weight loss recommended -may use abdominal binder (after reducing hernia) for support 2. Obesity: bmi: 40 -weight management -diet and exercise 3. History of cva: -medical management -supportive 4. Anemia: No acute bleed noted -work up per medical team -monitor and transfuse prn 5. Depression with suicidal ideation: no SI at this time -1:1 sitter per Psych continues Thank you. Patient seen and examined in collaboration with Dr. Neto Gómez. Problems: Exam/Review of Systems Vital Signs Vitals Vital Signs Date Time Temp Pulse Resp B/P Pulse Ox O2 Delivery O2 Flow Rate FiO2 06/12/17 20:36 87 20 96 21 06/12/17 19:45 98.4 137/74 06/12/17 02:27 Nasal Cannula 2.0 Intake and Output 06/11/17 06/11/17 06/12/17 15:00 23:00 07:00 Intake Total 1320 ml 1000 ml Output Total 850 ml Balance 1320 ml 150 ml Results Result Diagram: 06/12/1760006/12/17600 RAFAL BROWN NP Jun 12, 2017 22:25
[2017-06-13] VITALS (7 sets, daily range): BP systolic 126–135; BP diastolic 66–80; PULSE 80–90; RESP 19–21
[2017-06-13] MEDS: HYDROCODONE/APAP (10/325) TAB PO PRN ×2 (02:56→04:12)
[2017-06-13] MEDS: ALBUTEROL/IPRATROPIUM (NEB) 3 ML AMP HHN SCH ×3 (03:15→14:09)
[2017-06-13] MEDS ORDERED: VANCOMYCIN IV PER PHARMACY XX SCH (04:30)
[2017-06-13] MEDS ORDERED: VANCOMYCIN 1.5 GM in SOD CHLORIDE 0.9% 250 ML IVPB SCH (05:00)
[2017-06-13] MEDS: PANTOPRAZOLE (EC) 40 MG TAB PO SCH (06:10)
[2017-06-13] MEDS: GABAPENTIN 300 MG CAP PO SCH ×2 (09:46→13:26)
[2017-06-13] MEDS: BACLOFEN 10 MG TAB PO SCH ×2 (09:47→13:26)
[2017-06-13] MEDS: RISPERIDONE 2 MG TAB PO SCH (09:47)
[2017-06-13] MEDS: DIVALPROEX (ER) 500 MG TAB PO SCH (09:47)
[2017-06-13] MEDS: BENAZEPRIL 10 MG TAB PO SCH (09:47)
[2017-06-13] MEDS: ESCITALOPRAM 10 MG TAB PO SCH (09:47)
[2017-06-13] MEDS: LITHIUM CARBONATE 300 MG CAP PO SCH ×2 (09:47→13:26)
[2017-06-13] MEDS: FERROUS SULFATE (EC) 325 MG TAB PO SCH ×2 (09:47→13:26)
[2017-06-13] MEDS: LEVETIRACETAM 500 MG TAB PO SCH (09:47)
[2017-06-13] MEDS: DORZOLAMIDE 2% 10 ML OPH BOTH EYES SCH ×2 (09:48→13:26)
[2017-06-13] MEDS: TIMOLOL 0.25% 5 ML OPH BOTH EYES SCH (09:48)
[2017-06-13] MEDS: GUAIFENESIN 20 MG/ML 5ML CUP PO SCH ×2 (09:48→13:26)
[2017-06-13] MEDS: FLUTICASONE 0.05% 16 GM NAS SPRAY NASAL SCH (09:48)
--- NOTE | 2017-06-13 10:30 | PN ---
Date/Time of Note Date/Time of Note DATE: 06/13/17 TIME: 10:28 Assessment/Plan VTE Prophylaxis VTE Prophylaxis Intervention: LMWH Lines/Catheters IV C[facility]ter Type [facility]from [facility] [place] Urinary Cath still in place: No Assessment/Plan Chief Complaint/Hosp Course 41 Y/O with # Abdominal pain with ventral hernia without incarceration/strangulation # Depression with suicidal ideation # Obesity: bmi: 40 # History of cva: # Anemia: No acute bleed noted # hx Seizure dx # HTN Plan - Monitor for fevers today - Will f/u speciation of gram +rods - c/w Resperidal 2/3 and c.w [place] - c/w Keppra - Possible dc to boarding care pending cx results Problems: Subjective 24 Hr Interval Summary Free Text/Dictation BLD CX+ Gram +anna Fever 99 Exam/Review of Systems Vital Signs Vitals Vital Signs Date Time Temp Pulse Resp B/P Pulse Ox O2 Delivery O2 Flow Rate FiO2 06/13/17 09:03 88 06/13/17 07:38 99.6 19 135/80 97 06/13/17 07:20 21 06/12/17 02:27 Nasal Cannula 2.0 Intake and Output 06/12/17 06/12/17 06/13/17 15:00 23:00 07:00 Intake Total 700 ml Output Total 630 ml Balance 70 ml Exam Constitutional: alert Psych: depressed, suicidal ideation Neck: supple Respiratory: clear to auscultation, normal air movement Cardiovascular: nl pulses, regular rate and rhythm Gastrointestinal: distended (min), other (ventral hernia), soft, surgical scars Musculoskeletal: nl extremities to inspection, other (left sided weakness) Results Result Diagram: 06/12/1760006/12/17 06 Medications Medications Current Medications Pantoprazole (Protonix Tab) 40 mg DAILY@06 PO Last administered on 06/13/17 06:10; Admin Dose 40 MG; Start 06/07/17 at 06:00 Atorvastatin Calcium (Lipitor) 20 mg HS PO Last administered on 06/12/17 20: 16; Admin Dose 20 MG; Start 06/07/17 at 21:00 Diphenhydramine HCl (Benadryl) 25 mg Q8 PRN PO ITCHING Last administered on 01:43; Admin Dose 25 MG; Start 06/06/17 at 22:30 Divalproex Sodium (Depakote Er) 500 mg DAILY PO Last administered on 09:47; Admin Dose 500 MG; Start 06/07/17 at 09:00 Escitalopram Oxalate (Lexapro) 10 mg DAILY PO Last administered on 06/13/17 09:47; Admin Dose 10 MG; Start 06/07/17 at 09:00 Ferrous Sulfate (Ferrous Sulfate (Ec)) 325 mg TID PO Last administered on 06/13 09:47; Admin Dose 325 MG; Start 06/07/17 at 09:00 Fluticasone Propionate (Flonase 0.05% Nasal) 1 spray DAILY NASAL Last administered on 06/13/17 09:48; Admin Dose 1 SPRAY; Start 06/07/17 at 09:00 Levetiracetam (Keppra) 500 mg DAILY PO Last administered on 06/13/17 09:47; Admin Dose 500 MG; Start 06/07/17 at 09:00 Phenytoin (Dilantin) 300 mg HS PO Last administered on 06/12/17 20:15; Admin Dose 300 MG; Start 06/06/17 at 23:00 Timolol Maleate (Timoptic 0.25%) 1 drop BID BOTH EYES Last administered on 09:48; Admin Dose 1 DROP; Start 06/07/17 at 09:00 Dorzolamide HCl (Trusopt) 1 drop TID BOTH EYES Last administered on 06/13/17 09:48; Admin Dose 1 DROP; Start 06/07/17 at 09:00 Benazepril HCl (Lotensin) 20 mg DAILY PO Last administered on 06/13/17 09:47 ; Admin Dose 20 MG; Start 06/07/17 at 09:00 Latanoprost (Xalatan) 1 drop HS BOTH EYES Last administered on 06/12/17 20:40 ; Admin Dose 1 DROP; Start 06/07/17 at 21:00 Guaifenesin (Robitussin Liquid Cup) 100 mg TID PO Last administered on 09:48; Admin Dose 100 MG; Start 06/09/17 at 09:00 [place] Carbonate ([place] Carbonate) 300 mg TID PO Last administered on 09:47; Admin Dose 300 MG; Start 06/09/17 at 13:00 Mirtazapine (Remeron) 45 mg HS PO Last administered on 06/12/17 20:17; Admin Dose 45 MG; Start 06/09/17 at 21:00 Acetaminophen (Tylenol Tab) 650 mg Q6H PRN PO PAIN AND OR ELEVATED TEMP Last administered on 06/12/17 12:43; Admin Dose 650 MG; Start 06/09/17 at 14:30 Acetaminophen/ Hydrocodone Bitart ([place] (10/325)) 1 tab Q6H PRN PO PAIN Last administered on 06/13/17 04:12; Admin Dose 1 TAB; Start 06/09/17 at 18:00 Baclofen (Lioresal) 10 mg TID PO Last administered on 06/13/17 09:47; Admin Dose 10 MG; Start 06/10/17 at 03:30 Risperidone (Risperdal) 2 mg AM PO Last administered on 06/13/17 09:47; Admin Dose 2 MG; Start 06/11/17 at 09:00 Risperidone (Risperdal) 2 mg HS PO Last administered on 06/12/17 20:30; Admin Dose 2 MG; Start 06/10/17 at 21:00 Risperidone (Risperdal) 1 mg HS PO Last administered on 06/12/17 20:17; Admin Dose 1 MG; Start 06/10/17 at 21:00 Gabapentin 300 mg 300 mg TID PO Last administered on 06/13/17 09:46; Admin Dose 300 MG; Start 06/11/17 at 21:00 Vancomycin HCl/ Sodium Chloride (Vancocin/NS) 250 ml @ 83.333 mls/ hr Q8H IVPB ; Start 06/13/17 at 05:00 ELIEZER KEY MD Jun 13, 2017 10:30
== END 2017-06-13 15:08 | disposition left against medical advice (07) | DRG 394 ==
LOC: MS1 06-06 21:27 → TEL 06-09 22:50
PROVIDERS: ADMIT Family Medicine; ATTEND Internal Medicine Nephrology
DX: K43.9 Ventral hernia without obstruction or gangrene (principal); Z68.41 Body mass index [BMI] 40.0-44.9, adult; R45.851 Suicidal ideations; I10 Essential (primary) hypertension; Z72.0 Tobacco use; Z86.73 Personal history of transient ischemic attack (TIA), and cerebral infarction without residual deficits; E66.9 Obesity, unspecified; D64.9 Anemia, unspecified; F25.9 Schizoaffective disorder, unspecified; F32.9 Major depressive disorder, single episode, unspecified; G40.909 Epilepsy, unspecified, not intractable, without status epilepticus
CPT/HCPCS: 71010; 80053; 80061; 80178; 81003; 82962; 84484; 85025; 87040; 87086; 92526; 92610; 93005; 93306; 94640; 94664; 97162; 97166; 97535; J2270; J3370; J7042; J7050

== ENCOUNTER 2016-12-27 12:48 | Emergency (ER) | payer OTHER ==
[~2016-12-27] VITALS: Wt 115.0 kg
[~2016-12-27 12:48] MED LIST changes: -LEVE500S8 PO; +LEVE500S9 PO; -METO-335 PO; +METO25TA7 PO
--- NOTE | 2016-12-27 14:19 | RADRPT ---
PROCEDURE: CHEST 1VW CLINICAL INDICATION: Chest pain TECHNIQUE: Single frontal view of the chest was obtained COMPARISON: 02/27/2015 FINDINGS: The cardiac size is mildly enlarged, stable. Aortic vascular calcifications are demonstrated. There is no significant pulmonary vascular congestion.Previously demonstrated mild pulmonary congest ion has resolved. The lungs are clear. No consolidation, effusion, or pneumothorax. Mild degenerative changes of the visualized osseous structures are visualized. IMPRESSION: 1. No acute cardiopulmonary process. 2. Atherosclerosis. RPTAT:PP .Young Bledsoe MD, MD Date Time Electronically viewed and signed by .Young Bledsoe MD, on 12/27/2016 14:18 .V/
[2016-12-27 14:25] LABS: ADD SCAN DIFF NO
[2016-12-27 14:29] LABS: BASOPHILS % 0.5 % (0.0-2.0); EOSINOPHILS # 0.4 10^3/ul (0.0-0.5); EOSINOPHILS % 5.6 % (0.0-7.0); HEMATOCRIT 36.6 % (42.0-52.0); HEMOGLOBIN 11.6 g/dl (14.0-18.0); LYMPHOCYTES # 2.7 10^3/ul (0.8-2.9); LYMPHOCYTES % 41.6 % (15.0-51.0); MEAN CORPUSCULAR HEMOGLOBIN 25.2 pg (29.0-33.0); MEAN CORPUSCULAR HGB CONC 31.7 g/dl (32.0-37.0); MEAN CORPUSCULAR VOLUME 79.6 fl (82.0-101.0); MEAN PLATELET VOLUME 9.5 fl (7.4-10.4); MONOCYTE # 0.8 10^3/ul (0.3-0.9); MONOCYTES % 11.4 % (0.0-11.0); NEUTROPHIL # 2.7 10^3/ul (1.6-7.5); NEUTROPHILS % 40.4 % (39.0-77.0); PLATELET COUNT 228 10^3/UL (140-415); RED CELL DISTRIBUTION WIDTH 14.4 % (11.5-14.5); WHITE BLOOD COUNT 6.6 10^3/ul (4.8-10.8)
[2016-12-27 14:43] LABS: ALBUMIN 4.2 g/dl (3.3-4.9); CHLORIDE 104 mmol/L (97-110); POTASSIUM 3.6 mmol/L (3.5-5.1); SODIUM 143 mmol/L (135-144)
[2016-12-27 14:46] LABS: ALANINE AMINOTRANSFERASE 59 IU/L (13-69); ALBUMIN/GLOBULIN RATIO 1.07; ALKALINE PHOSPHATASE 109 IU/L (42-121); ANION GAP 13 (8-16); ASPARTATE AMINO TRANSFERASE 50 IU/L (15-46); BILIRUBIN,INDIRECT 0.2 mg/dl (0-1.1); BILIRUBIN,TOTAL 0.2 mg/dl (0.2-1.3); BLOOD UREA NITROGEN 11 mg/dl (7-20); CARBON DIOXIDE 30 mmol/L (21-31); CREATININE 0.85 mg/dl (0.61-1.24); GLUCOSE 81 mg/dl (70-220); TOTAL PROTEIN 8.1 g/dl (6.1-8.1)
[2016-12-27 14:47] LABS: CALCIUM 8.8 mg/dl (8.4-10.2)
--- NOTE | 2016-12-27 14:48 | RADRPT ---
PROCEDURE: US Lower extremity Venous. CLINICAL INDICATION: Bilateral lower extremity edema TECHNIQUE: Multiple sonographic images of the bilateral lower extremity deep venous system was obt ained utilizing grayscale, color-flow, compressive sonography and doppler imaging with augmentation. The images were reviewed on a PACS workstation. COMPARISON: None. FINDINGS: There is normal compressibility and flow within the bilateral common femoral, femoral , posterior ti bial and popliteal veins. RPTAT: AA IMPRESSION: No sonographic evidence for deep venous thrombosis. .Caesar Rojas MD, MD Date Time Electronically viewed and signed by .Caesar Rojas MD, on 12/27/2016 14:48 .S/
[2016-12-27 14:54] LABS: B-TYPE NATRIURETIC PEPTIDE 29 PG/ML (0-125)
[2016-12-27 15:01] LABS: TROPONIN-I < 0.012 ng/ml (0.00-0.12)
--- NOTE | 2016-12-27 15:12 | RADRPT ---
PROCEDURE: CT Brain without. CLINICAL INDICATION: Right leg weakness, lethargic. TECHNIQUE: A CT of the brain was performed on multidetector high-resolution CT scanner utilizing a xial sections from the skull base through the vertex without contrast. The scan was reviewed in sof t tissue brain and high frequency resolution bone algorithm windows. Images were reviewed on a high -resolution PACS workstation. One or more the following does reduction techniques were utilized: Aut omated exposure control, adjustment of the mA/ or kV according to patient's size, or use of iterativ e reconstruction technique. The exam CTDI = 44.11 mGy and the DLP = 720.23 mGy-cm. COMPARISON: None available. FINDINGS: The ventricles and cerebral sulci are age-appropriate. There is mild to moderate cerebellar volume l oss. There is no intracranial hemorrhage, mass effect or midline shift. No abnormal intra-axial or extra-axial fluid collections are seen. The oshea/white matter differentiation is preserved. The vis ualized paranasal sinuses demonstrate 1.4 cm mucous retention cyst in the inferior left maxillary si nus. The mastoid air cells are essentially clear. There is approximately 2 cm osseous lucency in th e left frontoparietal skull which may represent an arachnoid granulation. IMPRESSION: 1. No acute intracranial hemorrhage, transcortical infarction or mass effect. Please note MRI is mo re sensitive for detection of acute ischemia and can be obtained as clinically warranted. 2. Mild to moderate cerebellar volume loss. RPTAT: EE .Dianelys Stewart MD, MD Date Time Electronically viewed and signed by .Dianelys Stewart MD, MD on 12/27/2016 15:12 .N/
--- NOTE | 2016-12-27 16:53 | ERD ---
ER Documentation Chief Complaint Date/Time DATE: 12/27/16 TIME: 16:42 Chief Complaint LOWER LEG SWELLING FOR A WK, NO TRAUMA NOTED. NO DEFORMITY HPI This is a 41-year-old man who has had a prior history of a stroke with left- sided deficits is complaining that he has bilateral leg swelling. He said he has been swelling for over a week. He says he has no pain shortness of breath no chest pain. He said he is worried he is going to have another stroke because his legs were swelling before he had his first stroke. He said that the main reason why he is here. Says he has no weakness that is new no speech change. He does have a slurred speech when he talks but he tells me that this is normal for him since his stroke before, and because of his medications. Apparently the patient received Lasix at his the [facility] but it did not help so he is here for evaluation ROS All systems reviewed and are negative except as per history of present illness. Medications Home Meds Reported Medications Insulin Isophan/Regular (Humulin 70/30) 100 Units/Ml Susp, 6 UNITS SC TID, EA 02/27/15 Albuterol Sulfate* (Albuterol Sulfate* Neb) 0.083%-3 Ml Neb, 1.25 MG NEB Q4H, EA 02/27/15 Diphenhydramine Hcl* (Diphenhydramine Hcl*) 25 Mg Capsule, 25 MG PO BID Y for ITCHING, CAP 02/27/15 Mirtazapine* (Mirtazapine*) 15 Mg Tablet, 45 MG PO HS, TAB 02/27/15 Nortriptyline Hcl* (Nortriptyline Hcl*) 10 Mg Capsule, 20 MG PO DAILY, CAP 02/27/15 Metoprolol Succinate* (Toprol XL*) 25 Mg Tab.sr.24h, 25 MG PO DAILY, TAB 02/27/15 Levetiracetam* (Levetiracetam*) 500 Mg/5 Ml Solution, 500 MG PO BID, ML 02/27/15 Phenytoin* Sodium Extended (Dilantin*) 100 Mg Capsule, 100 MG PO TID, CAP 02/27/15 Baclofen* (Baclofen*) 10 Mg Tablet, 10 MG PO BID, TAB 02/27/15 Omeprazole* (Omeprazole*) 20 Mg Capsule.dr, 20 MG PO DAILY, CAP 02/27/15 Ramipril (Ramipril) 10 Mg Capsule, 10 MG PO DAILY, CAP 02/27/15 Allergies Allergies: Coded Allergies: haloperidol (Verified Allergy, Unknown, 02/27/15) latex (Verified Allergy, Unknown, 02/27/15) PMhx/Soc History of Surgery: Yes (Tracheostomy,Gastrostomy,PICC Line) Anesthesia Reaction: No Hx Neurological Disorder: Yes (Diabetic Neuropathy,Seizure,Hep Enceph,CVA) Hx Respiratory Disorders: Yes (Sleep Apnea,Acute Resp Fail,COPD,Asthma, Intubation Hx) Hx Cardiac Disorders: Yes (HTN,A-Fib,CHF) Hx Psychiatric Problems: Yes (Depression) Hx Miscellaneous Medical Probl: Yes (DM,GERD,Yang Glaucoma) Hx Alcohol Use: No Hx Substance Use: No Hx Tobacco Use: Yes Smoking Status: Never smoker FmHx Family History: No coronary disease Physical Exam Vitals Vital Signs Date Time Temp Pulse Resp B/P Pulse Ox O2 Delivery O2 Flow Rate FiO2 12/27/16 12:59 98.3 80 20 138/80 98 Physical Exam Const: Well-developed, well-nourished slightly slurred speech Head: Atraumatic, normocephalic Eyes: Normal Conjunctiva, PERRLA, EOMI, normal sclera, no nystagmus ENT: Normal External Ears, Nose and Mouth, moist mucus membranes. Neck: Full range of motion. No meningismus, no lymphadenopathy. Resp: Clear to auscultation bilaterally, no wheezing, rhonchi, rales Cardio: Regular rate and rhythm, no murmurs, S1 S2 present Abd: Soft, non tender x 4, non distended. Normal bowel sounds, no guarding or rebound, no pulsitile abdominal masses or bruits Skin: No petechiae or rashes, no ecchymosis , no maculopapular rash Back: No midline or flank tenderness Ext: No cyanosis, or edema, FROM x 4, normal inspection, neurovascularly intact x 4, some slight edema to both legs +1 up to the amaya Neur: Awake and alert, left-sided weakness at baseline right upper extremity 5 out of 5 right lower extremity 4 out of 5, sensation intact x 4 Psych: Normal Mood and Affect Result Diagram: 12/27/16 1410 12/27/16 1410 Results 24 hrs Laboratory Tests Test 12/27/16 14:10 White Blood Count 6.610^3/ul Red Blood Count 4.6010^6/ul Hemoglobin 11.6g/dl Hematocrit 36.6% Mean Corpuscular Volume 79.6fl Mean Corpuscular Hemoglobin 25.2pg Mean Corpuscular Hemoglobin Concent 31.7g/dl Red Cell Distribution Width 14.4% Platelet Count 84786^3/UL Mean Platelet Volume 9.5fl Neutrophils % 40.4% Lymphocytes % 41.6% Monocytes % 11.4% Eosinophils % 5.6% Basophils % 0.5% Nucleated Red Blood Cells % 0.0/100WBC Neutrophils # 2.710^3/ul Lymphocytes # 2.710^3/ul Monocytes # 0.810^3/ul Eosinophils # 0.410^3/ul Basophils # 0.010^3/ul Nucleated Red Blood Cells # 0.010^3/ul Sodium Level 143mmol/L Potassium Level 3.6mmol/L Chloride Level 104mmol/L Carbon Dioxide Level 30mmol/L Anion Gap 13 Blood Urea Nitrogen 11mg/dl Creatinine 0.85mg/dl Glucose Level 81mg/dl Calcium Level 8.8mg/dl Total Bilirubin 0.2mg/dl Direct Bilirubin 0.00mg/dl Indirect Bilirubin 0.2mg/dl Aspartate Amino Transf (AST/SGOT) 50IU/L Alanine Aminotransferase (ALT/SGPT) 59IU/L Alkaline Phosphatase 109IU/L Troponin I < 0.012ng/ml B-Type Natriuretic Peptide 29PG/ML Total Protein 8.1g/dl Albumin 4.2g/dl Globulin 3.90g/dl Albumin/Globulin Ratio 1.07 Procedures/MDM PROCEDURE: CT Brain without. CLINICAL INDICATION: Right leg weakness, lethargic. TECHNIQUE: A CT of the brain was performed on multidetector high-resolution CT scanner utilizing axial sections from the skull base through the vertex without contrast. The scan was reviewed in soft tissue brain and high frequency resolution bone algorithm windows. Images were reviewed on a high- resolution PACS workstation. One or more the following does reduction techniques were utilized: Automated exposure control, adjustment of the mA/ or kV according to patient's size, or use of iterative reconstruction technique. The exam CTDI = 44.11 mGy and the DLP = 720.23 mGy-cm. COMPARISON: None available. FINDINGS: The ventricles and cerebral sulci are age-appropriate. There is mild to moderate cerebellar volume loss. There is no intracranial hemorrhage, mass effect or midline shift. No abnormal intra-axial or extra-axial fluid collections are seen. The oshea/white matter differentiation is preserved. The visualized paranasal sinuses demonstrate 1.4 cm mucous retention cyst in the inferior left maxillary sinus. The mastoid air cells are essentially clear. There is approximately 2 cm osseous lucency in the left frontoparietal skull which may represent an arachnoid granulation. IMPRESSION: 1. No acute intracranial hemorrhage, transcortical infarction or mass effect. Please note MRI is more sensitive for detection of acute ischemia and can be obtained as clinically warranted. 2. Mild to moderate cerebellar volume loss. RPTAT: EE .Dianelys Stewart MD, MD Date Time Electronically viewed and signed by .Dianelys Stewart MD, MD on 12/27/2016 15: 12 .N/ CC: NONA SHIELDS DO PROCEDURE: CHEST 1VW CLINICAL INDICATION: Chest pain TECHNIQUE: Single frontal view of the chest was obtained COMPARISON: 02/27/2015 FINDINGS: The cardiac size is mildly enlarged, stable. Aortic vascular calcifications are demonstrated. There is no significant pulmonary vascular congestion.Previously demonstrated mild pulmonary congestion has resolved. The lungs are clear. No consolidation, effusion, or pneumothorax. Mild degenerative changes of the visualized osseous structures are visualized. IMPRESSION: 1. No acute cardiopulmonary process. 2. Atherosclerosis. RPTAT:PP .Young Bledsoe MD, MD Date Time Electronically viewed and signed by .Young Bledsoe MD, MD on 12/27/2016 14:18 .V/ CC: NONA SHIELDS DO PROCEDURE: US Lower extremity Venous. CLINICAL INDICATION: Bilateral lower extremity edema TECHNIQUE: Multiple sonographic images of the bilateral lower extremity deep venous system was obtained utilizing grayscale, color-flow, compressive sonography and doppler imaging with augmentation. The images were reviewed on a PACS workstation. COMPARISON: None. FINDINGS: There is normal compressibility and flow within the bilateral common femoral, femoral , posterior tibial and popliteal veins. RPTAT: AA IMPRESSION: No sonographic evidence for deep venous thrombosis. .Caesar Rojas MD, MD Date Time Electronically viewed and signed by .Caesar Rojas MD, MD on 12/27/2016 14: 48 .S/ CC: NONA SHIELDS DO Patient has no signs of acute stroke, no signs of acute DVT, BNP is within normal limits., He has no pulmonary vascular congestion. His edema may just from being bedridden as the patient does not walk. We will discharge back for further examination workup by his primary Departure Diagnosis: Primary Impression: Pedal edema Condition: Stable NONA SHIELDS DO December 27, 2016 16:52
[2016-12-27 19:03] VITALS: BP 137/97; PULSE 94; RESP 16
== END 2016-12-27 19:03 | disposition home or self-care (01) ==
LOC: E/R 12:48
DX: R60.0 Localized edema (principal); I10 Essential (primary) hypertension; I50.9 Heart failure, unspecified; E11.9 Type 2 diabetes mellitus without complications; J44.9 Chronic obstructive pulmonary disease, unspecified; J45.909 Unspecified asthma, uncomplicated; R93.0 Abnormal findings on diagnostic imaging of skull and head, not elsewhere classified; Z79.4 Long term (current) use of insulin
CPT/HCPCS: 70450; 71010; 80053; 83880; 84484; 85025; 93970; Z7502

== ENCOUNTER 2017-12-12 17:13 | Emergency (ER) | END 2017-12-12 23:47 | disposition home or self-care (01) ==

== ENCOUNTER 2018-03-27 15:56 | Emergency (ER) | END 2018-03-27 19:11 | disposition home or self-care (01) ==

== ENCOUNTER 2018-04-24 22:23 | Inpatient (IN) | END 2018-04-28 21:00 | disposition home or self-care (01) | DRG 394 ==